=== PATIENT | male | born 1960 | race Caucasian/White ===

== ENCOUNTER 2016-12-12 14:12 | Inpatient (IN) | payer BC ==
[~2016-12-12] VITALS: Ht 195.6 cm; Wt 101.4 kg
--- NOTE | ~2016-12-12 | OP ---
PATIENT NAME: SAMIA HERNANDEZ MEDICAL RECORD: [id number] :64 LOCATION:D.[id number] ADMISSION DATE:12/12/16 SURGEON: SANDIE SALAZAR MD DATE OF OPERATION: 12/14/2016 PREOPERATIVE DIAGNOSIS: Left third toe osteomyelitis, abscess neuropathy. POSTOPERATIVE DIAGNOSES: Left third toe osteomyelitis, abscess neuropathy. PROCEDURES: Left third toe ray amputation. SURGEON: Prasad Salazar MD ANESTHESIA: TIVA with a popliteal block. CONDITION: He tolerated the procedure well, was transferred to the recovery room in stable condition at termination of procedure. 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 He is not diabetic. He developed a lesion on his left third toe at some juncture. This has been draining, it is foul smelling, clearly has osteomyelitis associated with it and clearly was nonsalvageable toe. We discussed options with him. He elected to proceed with the ray amputation. We did discuss that this is certainly a risk he has from all of his toes and for the adjacent toes specifically. He understands that this could end up going further amputations. OPERATIVE REPORT: The patient was taken to the operating room, placed in supine position. TIVA anesthesia was obtained. He did have a popliteal block placed. In the operating room, his left foot was prepped and draped in normal fashion. He has been receiving cefepime and vancomycin on the floor. He has also got a gram of Ancef in that room. After this was accomplished, he was prepped and draped and third toe was confirmed to be corrected. I did a ray amputation, doing a straight incision off of the ray and then circularly around the toe. I then cut off the metatarsal proximally. I copiously irrigated this area. It did not appear to be any infectious processes at the adjacent tissues and distal toe was clearly was the most involved. This was removed. He was copiously irrigated, following which he was closed with #1 Vicryl followed by 2-0 Vicryl, then 3-0 Prolene, closing the gap. He was placed in a soft dressing and then postop, he was awakened and transferred to the recovery room in stable condition, having tolerated the procedure well. TRANSINT:[id number] Voice Confirmation ID: [id number] DOCUMENT ID: [id number] SANDIE SALAZAR MD CC: [id number] DICTATION DATE: 12/14/16 1040 INSPECTOR SHEET METAL PARTS: 12/14/16 1151 ADM IN [place] [id number] [place] [id number]
--- NOTE | ~2016-12-12 | DS ---
PATIENT:SAMIA HERNANDEZ :64 MEDICAL RECORD: [id number] DISCHARGE SUMMARY ADMISSION DATE: 12/12/16 DISCHARGE DATE: 12/15/16 DATE OF ADMISSION: 12/13/2016 DATE OF DISCHARGE: 12/15/2016 ADMITTING DIAGNOSIS: Left foot third toe osteomyelitis and abscess. DISCHARGE DIAGNOSIS: Left foot third toe osteomyelitis and abscess. PROCEDURE PERFORMED DURING THE HOSPITALIZATION: A left third toe ray amputation. ADMITTING PHYSICIAN: Prasad Charlton MD HISTORY OF PRESENT ILLNESS: This is a 56-year-old gentleman unfortunately with profound neuropathy of his feet. He does not have diabetes. Presented with a sore in his foot that is clearly advanced osteomyelitis and significant amount of infection. He was taken to the operating room yesterday where he underwent a ray amputation of the third toe. He is doing well today revealing would like to be discharged to home. I am going to discharge home and put him on Augmentin and Bactrim for about 10 days, wanting to be cautious with his wound. I discussed with him using his postop shoe with limited weightbearing. I want to see him in the office in 7-10 days. He is going to call if he is having any problems. DISCHARGE DIAGNOSIS: Left toe abscess with osteomyelitis. PLAN: To see me back in the office in 7-10 days. TRANSINT:[id number] Voice Confirmation ID: [id number] DOCUMENT ID: [id number] SANDIE CHARLTON MD CC: [id number] DICTATION DATE: 12/15/16 0804 INSPECTOR ALUMINUM BOAT: 12/16/16 0119 DIS IN 12/15/16 [place] [id number] [place] [id number]
[2016-12-12 16:44] LABS: BASOPHILS 0.2 % (0-2); EOSINOPHILS 0.2 % (0-7); HEMATOCRIT 43.8 % (42.0-54.0); HEMOGLOBIN 15.7 g/dL (13.5-17.5); IMMATURE GRANULOCYTES 0.2 % (0-5); MCHC 35.8 g/dL (31.0-37.0); MCV 89.2 fL (80.0-100.0); MEAN PLATELET VOLUME 10.1 fL (7.4-10.4); MONOCYTES 9.5 % (2-11); NEUTROPHILS 69.9 % (40-80); PLATELET COUNT 379 10x3/uL (130-400); RBC 4.91 10x6/uL (4.20-6.10); WBC 12.1 10x3/uL (4.8-10.8)
[2016-12-12 17:08] LABS: ALBUMIN 3.2 g/dL (3.4-5.0); ALKALINE PHOSPHATASE 71 U/L (46-116); ALT (SGPT) 72 U/L (10-68); BILIRUBIN - TOTAL 0.98 mg/dL (0.2-1.3); CALC OSMOLALITY 262 mosm/kg (275-300); CALCIUM 9.1 mg/dL (8.5-10.1); CARBON DIOXIDE 26.4 mmol/L (21.0-32.0); CHLORIDE - SERUM 94 mmol/L (98-107); CREATININE - SERUM 0.9 mg/dL (0.6-1.3); GLUCOSE 113 mg/dL (74-106); POTASSIUM - SERUM 3.1 mmol/L (3.5-5.1); PROTEIN - SERUM 8.6 g/dL (6.4-8.2); SODIUM 132 mmol/L (136-145); UREA NITROGEN 5 mg/dL (7-18); eGFR NON AFRICAN AMERICAN > 90 mL/min (90-120)
[2016-12-13] VITALS: BP 135/82
--- NOTE | 2016-12-13 | NUR ---
PT ARRIVED TO ROOM VIA WHEELCHAIR, BROUGHT BY HOSPITAL STAFF ACCOMPANIED BY SPOUSE. PT ALERT AND ORIENTED X4. UP AD EVER[place]T. IV TO RIGHT AC NOT PATENT AT THIS TIME. IV RESITED TO LEFT ANTERIOR FOREARM WITH 22G CATHETER X1 ATTEMPT, FLUSHES WITHOUT PROBLEM, NOTED TO BE PATENT. PT DENIES PAIN OR NEEDS AT THIS TIME. RN TO COMPLETE ADMISSION ASSESSMENT.
[2016-12-13] MEDS ORDERED: NEURONTIN 300300 MG PO (00:09)
[2016-12-13] MEDS ORDERED: TENORMIN50 MG PO (00:10)
[2016-12-13] MEDS ORDERED: OMEPRAZOLE20 M1 PO (00:10)
[2016-12-13] MEDS ORDERED: SYNTHROID150 MCG PO (00:11)
--- NOTE | 2016-12-13 00:20 | NUR ---
PT C/O PAIN TO IV SITE OF LEFT FOREARM. SLIGHT EDEMA NOTED TO SITE, NO REDNESS, SITE COOL TO TOUCH. IV ABT STOPPED, IV REMOVED, CATHETER INTACT. IV RECIDED TO LEFT POSTERIOR FOREARM WITH 22G CATHETER X1 ATTEMPT. IV FLUSHES WITHOUT PROBLEM, NOTED TO BE PATENT.
--- NOTE | 2016-12-13 03:52 | NUR ---
LYING IN BED WITH EYES CLOSED. RESP EVEN AND UNLABORED. CALL LIGHT IN REACH.
[2016-12-13 04:00] VITALS: BP 131/89
[2016-12-13 08:05] VITALS: BP 135/82; Ht 195.6 cm; Wt 101.4 kg
[2016-12-13 09:00] VITALS: BP 143/90
--- NOTE | 2016-12-13 14:00 | NUR ---
RESTING QUIETLY IN BED. DENIES NEEDS. DRESSING TO LEFT TOE DRY AND INTACT. NO C/O AT THIS TIME.
[2016-12-13 16:17] VITALS: BP 122/80
--- NOTE | 2016-12-13 17:38 | NUR ---
SPOKE WITH PT AT LENGTH REGARDING SURGERIES AND DISEASE PROCESS IN AN ATTEMPT TO HELP PT MAKE A DECISION REGARDING SURGERY TOMORROW. PT STATES HE IS STILL THINKING ABOUT IT. TOLD HIM TO TAKE HIS TIME BECAUSE IT IS A BIG DECISION, BUT WE NEEDED TO KNOW SOON. PT STATES HE UNDERSTANDS AND WILL TALK WITH HIS .
[2016-12-13 20:00] VITALS: BP 147/95
--- NOTE | 2016-12-13 22:32 | NUR ---
Patient resting in bed with at bedside, alert and oriented , call light and water in reach, bed in lowest position and locked, CPOC.
[2016-12-14] VITALS: BP 145/102
[2016-12-14 04:00] VITALS: BP 149/86
--- NOTE | 2016-12-14 09:15 | NUR ---
PRE OPERATIVE MEDICATIONS ADMINISTERED AT THIS TIME. AT BEDSIDE AND PT DENIES NEEDS. RASHAWN, EVENING OR NIGHT NURSE SUPERVISOR AT BEDSIDE PERFORMING PRE PROCEDURE ASSESSMENT. CALL LIGHT IN REACH, WILL CONTINUE WITH PLAN OF CARE.
[2016-12-14 09:17] VITALS: BP 135/82
--- NOTE | 2016-12-14 09:32 | NUR ---
PT TAKEN FOR SURGERY. PREOP'D BY LIA FUENTES, WHICH IS VERY MUCH APPRECIATED.
--- NOTE | 2016-12-14 10:51 | NUR ---
PT REC'D BACK TO ROOM FROM SURGERY. AAOX4. ABLE TO WIGGLE TOES ON LEFT FOOT. BRISK CAP REFILL. NO COMPLAINTS OF PAIN. VSS. DRESSING TO L TOE CLEAN DRY AND INTACT. BED LOW, CALL LIGHT IN REACH, DENIES NEEDS. CPOC.
[2016-12-14 15:33] VITALS: BP 128/74
[2016-12-14 20:00] VITALS: BP 112/85
--- NOTE | 2016-12-14 20:23 | NUR ---
PATIENT RESTING IN BED. ALERT AND ORIENTED. NO SIGNS OF DISTRESS NOTED. SCHEDULED MEDS GIVEN. SHIFT ASSESSMENT COMPLETED. DENIES ANY NEEDS AT THIS TIME. BED LOW. CALL LIGHT IN REACH
--- NOTE | 2016-12-15 01:05 | NUR ---
RESTING WITH EYES CLOSED, NO DISTRESS NOTED, BOOT IN PLACE TO L FOOT, FALL PRECAUTIONS IN PLACE, CL IN REACH
[2016-12-15 04:00] VITALS: BP 131/88
--- NOTE | 2016-12-15 07:44 | NUR ---
PT AOX4 RESP EVEN AND NONLABORED IV TO LEFT FOREARM PATENT AND INTACT WALKING BOOT TO LEFT FOOT ON AT THIS TIME. PT DENIES NEEDS AT THIS TIME SRX2 CALL LIGHT WITHIN REACH WILL CONTINUE TO MONITOR BED AT LOWEST SETTING
[2016-12-15] MEDS ORDERED: AUGMENTIN 500-11 TA1 PO (08:00)
[2016-12-15] MEDS ORDERED: BACTRIM DS TABL1 TAB PO (08:00)
[2016-12-15 08:22] VITALS: BP 134/64
--- NOTE | 2016-12-15 10:15 | NUR ---
Patient Name: SAMIA HERNANDEZ Admission Status: ER Accout number: [id number] Admission Date: 12-12-2016 : 1960 Admission Diagnosis:OSTEOMYELITIS, UNSPECIFIED Attending: MARTA Current LOS: 3 Anticipated DC Date: Planned Disposition: Primary Insurance: [employer] [facility] [place] Discharge Planning Comments: CM MET WITH PATIENT REGARDING D/C NEEDS AND PLANS. PATIENT STATED HE LIVES WITH HIS (HUSAM) AND SHE WILL DRIVE HIM HOME TODAY AT DISCHARGE. PATIENT STATED HE HAS NO STEPS OR STAIRS AT HIS HOME. PATIENT STATED HIS PCP IS DR. ARIAS IN [place] AND USES [facility] IN [place]. PATIENT STATED HIS IS INDEPENDENT WITH HIS CARE AND HAS CRUTCHES AT HOME. PATIENT HAS A POST OP SHOE ON AND HE STATED THE DOCTOR TOLD HIM NOT TO USE CRUTCHES OR A WALKER. PATIENT REFUSED HOME HEALTH. CM WILL CONTINUE TO FOLLOW PATIENT WITH D/C NEEDS AND PLANS. PCP DR. ARIAS [facility] IN [place] [phone] HUSAM () [phone] Sheet Metal Contractor: Maryann Crystal
[2016-12-15 11:50] VITALS: BP 128/82
--- NOTE | 2016-12-15 12:25 | NUR ---
IV REMOVED WITH CATHETER INTACT AT THIS TIME
--- NOTE | 2016-12-15 13:00 | NUR ---
PT GIVEN DISCHARGE INSTRUCTIONS AND 2 RX'S FOR ANTIBIOTICS AT THIS TIME. PT LEAVING BUILDING VIA WHEELCHAIR VIA PRIVATE VEHICLE AT THIS TIME
== END 2016-12-15 13:01 | disposition home or self-care (01) | DRG 475 ==
LOC: D.ER 14:12 → D.MS 22:22
PROVIDERS: Emergency Medicine; ADMIT Orthopaedic Surgery Sports Medicine
PROC: 0Y6N0ZC Detachment at Left Foot, Partial 3rd Ray, Open Approach (ICD-10-PCS; principal; 2016-12-14 09:15)
DX: M86.9 Osteomyelitis, unspecified (principal); L02.612 Cutaneous abscess of left foot; G62.9 Polyneuropathy, unspecified

== ENCOUNTER 2018-02-02 15:16 | Inpatient (IN) | payer BC ==
[~2018-02-02] VITALS: Ht 195.6 cm; Wt 109.1 kg
[~2018-02-02 15:16] MED LIST: AUGMENTIN 500-11 TA1 PO; BACTRIM DS TABL1 TAB PO; NEURONTIN 300300 MG PO; OMEPRAZOLE20 M1 PO; SYNTHROID150 MCG PO; TENORMIN50 MG PO
[2018-02-02 15:47] LABS: BASOPHILS 0.7 % (0-2); HEMATOCRIT 41.3 % (42.0-54.0); HEMOGLOBIN 14.6 g/dL (13.5-17.5); IMMATURE GRANULOCYTES 0.7 % (0-5); LYMPHOCYTES 29.3 % (15-50); MCH 32.9 pg (26.0-34.0); MCHC 35.4 g/dL (31.0-37.0); MEAN PLATELET VOLUME 9.7 fL (7.4-10.4); MONOCYTES 8.2 % (2-11); NEUTROPHILS 60.1 % (40-80); PLATELET COUNT 200 10x3/uL (130-400); RBC 4.44 10x6/uL (4.20-6.10); RDW 12.7 % (11.5-14.5); WBC 5.8 10x3/uL (4.8-10.8)
[2018-02-02 20:24] LABS: ERYTHROCYTE SEDIMENTATION RATE 19 mm/hr (0-20)
[2018-02-02 22:34] VITALS: BP 136/79; BMI 28.5
[2018-02-03 01:05] VITALS: BP 136/79
[2018-02-03 05:16] VITALS: BP 125/76
[2018-02-03 08:13] VITALS: BP 154/88
[2018-02-03 12:35] VITALS: BP 161/95
[2018-02-03 13:06] VITALS: Ht 195.6 cm; Wt 109.1 kg
[2018-02-03 16:48] VITALS: BP 146/108
[2018-02-03] MEDS ORDERED: DOXYCYCLINE HY100 M2 PO (17:52)
== END 2018-02-03 18:30 | disposition home or self-care (01) | DRG 540 ==
LOC: D.ER 15:16 → D.MS 19:42
PROVIDERS: Emergency Medicine; Orthopaedic Surgery Foot and Ankle Surgery
DX: M86.172 Other acute osteomyelitis, left ankle and foot (principal); L03.116 Cellulitis of left lower limb; L97.529 Non-pressure chronic ulcer of other part of left foot with unspecified severity; M20.42 Other hammer toe(s) (acquired), left foot; G60.9 Hereditary and idiopathic neuropathy, unspecified; F17.200 Nicotine dependence, unspecified, uncomplicated

== ENCOUNTER 2018-02-05 07:05 | Day surgery (SDC) | payer BC ==
[~2018-02-05] VITALS: Ht 195.6 cm; Wt 104.3 kg
--- NOTE | ~2018-02-05 | OP ---
PATIENT NAME: SAMIA HERNANDEZ MEDICAL RECORD: [id number] :64 LOCATION:D[facility] ADMISSION DATE: SURGEON: LORNA SEN MD DATE OF OPERATION: 02/05/2018 DATE OF PROCEDURE: 02/05/2018 ANESTHESIOLOGIST: Dr. Judd. SURGEON: Dr. Sen OUTPATIENT DIETITIAN: None. PREOPERATIVE DIAGNOSES: Left second toe ulcer, left second distal phalanx, acute osteomyelitis. POSTOPERATIVE DIAGNOSES: Left second toe ulcer, left second distal phalanx, acute osteomyelitis. PROCEDURE PERFORMED: Partial amputation, left second toe through the DIP joint, bone culture of distal phalanx and soft tissue, intraoperative cultures, AFB Gram stain, fungal aerobic and anaerobic. BLOOD LOSS: Minimal. FINDINGS: See body of report. COMPLICATIONS: None. PATHOLOGY: The left second toe including the distal phalanx were sent for biopsy. Cultures were also taken from the infected wound with care to avoid culturing the superficial ulcer itself, which will be contaminated with multiple emil. IMPLANTS: None. DRAINS: None. POSTOPERATIVE CONDITION: Stable to recovery room. COUNTS: Needle, sponge, and instrument counts were correct. INDICATIONS FOR THE PROCEDURE: The patient was seen for a left second toe infection with development of an ulceration of the tip of the hammertoe over 3 to 4 days. MRI revealed edema in the distal phalanx as well as proximal phalanx. A diagnosis of acute osteomyelitis with toe ulcer was made as well as cellulitis of the second toe. Recommendation was made to the patient, after discussing with ID, that bone biopsy would be beneficial to identify the microbe since blood cultures were negative and culturing the wound tip would just reveal multiple skin contaminating emil. The patient was consented to have a left DIP disarticulation of the second toe to be sent for bone biopsy as well as cultures. Risks, benefits, alternatives and complications of the surgery were discussed with the patient. His questions were answered. The complications and benefits of alternatives were also discussed. He consented to proceed with the surgery in order to obtain the biopsy and cultures. Informed consent was OPERATIVE REPORT [id number] SAMIA HERNANDEZ obtained and placed in the chart. PROCEDURE IN DETAIL: The patient was provided a block by anesthesia in the preoperative area, after which time he was brought back to the operating room and placed supine on the operative table. Procedure was done under this block with the patient fully awake. The left lower extremity was elevated, prepped and draped in the usual sterile fashion. A 15 blade was then taken, after application of a calf tourniquet, which was brought up and remained up for the entirety of the procedure until the dressing was applied. An incision was made with a 15 blade, excising the tip ulcer and creating a flap centered around the DIP joint, which was disarticulated. The disarticulated distal phalanx and tip of the toe including the ulcer were then sent for biopsy. Cultures were then taken of the internal aspect of that distal phalanx and soft tissue with care to avoid touching the culture tip to the external aspect where the ulcer was. This was sent for AFB, fungal, aerobic and anaerobic to the lab. The articular portion of the middle phalanx was removed with a bone biter to debulk the tip for flap closure. Following this, having created a larger volar flap, the volar flap was elevated up and Proline sutures were placed along the distal and dorsal aspect of the toe completing the closure of the amputation stump. he dog ears were removed for closure. Following this, a sterile dressing was applied with Adaptic, 4 x 4 and Webril which was wrapped followed by Robert wrap. The patient was then placed in a postoperative hard-soled shoe and was instructed to weightbear on the heel only. The tourniquet was brought down and the patient was brought to the recovery room. He will be seen next week by the orthopedic clinic as well as with Dr. Rogers to followup the cultures and the bone biopsy. He will continue on his doxycycline p.o. in the meantime and I provided him with pain prescription in case he experiences deep surgical pain, although superficial pain will not be present due to his neuropathy. TRANSINT:[id number] Voice Confirmation ID: [id number] DOCUMENT ID: [id number] LORNA SEN MD at 2004 CC: [id number] DICTATION DATE: 02/05/18 1518 VP PURCHASING: 02/05/18 1613 [facility] [place] 02/05/18 [facility] [address] [place] [id number]
[~2018-02-05 07:05] MED LIST changes: +DOXYCYCLINE HY100 M2 PO
[2018-02-05 08:22] VITALS: BP 143/89; Ht 195.6 cm; Wt 104.3 kg
[2018-02-13 18:08] LABS: AEROBE ID Final report (())
[2018-02-15 16:13] LABS: AEROBE ID Final report (())
== END 2018-02-05 16:00 | disposition home or self-care (01) ==
LOC: D.OPS 07:05 → D.PAN 09:15 → D.OPS 16:00
PROVIDERS: Orthopaedic Surgery Foot and Ankle Surgery
DX: L97.528 Non-pressure chronic ulcer of other part of left foot with other specified severity (principal); M86.172 Other acute osteomyelitis, left ankle and foot; Z01.812 Encounter for preprocedural laboratory examination

== ENCOUNTER → 2018-02-16 13:37 | Outpatient (CLI) | payer BC ==
[2018-02-05 08:22] VITALS: BMI 27.3
[2018-02-16 14:05] LABS: BASOPHILS 0.8 % (0-2); EOSINOPHILS 1.4 % (0-7); HEMATOCRIT 43.9 % (42.0-54.0); HEMOGLOBIN 15.3 g/dL (13.5-17.5); IMMATURE GRANULOCYTES 0.4 % (0-5); MCH 32.6 pg (26.0-34.0); MCHC 34.9 g/dL (31.0-37.0); MCV 93.6 fL (80.0-100.0); MEAN PLATELET VOLUME 10.6 fL (7.4-10.4); NEUTROPHILS 61.4 % (40-80); PLATELET COUNT 239 10x3/uL (130-400); RBC 4.69 10x6/uL (4.20-6.10); RDW 12.9 % (11.5-14.5); WBC 5.2 10x3/uL (4.8-10.8)
[2018-02-16 14:24] LABS: C-REACTIVE PROTEIN 0.4 mg/dL (0.0-0.9); CREATININE - SERUM 0.9 mg/dL (0.6-1.3)
[2018-02-16 15:16] LABS: ERYTHROCYTE SEDIMENTATION RATE 10 mm/hr (0-20)
== END | disposition home or self-care (01) ==
LOC: D.LABREF 13:37
PROVIDERS: Student in an Organized Health Care Education/Training Program
DX: M86.9 Osteomyelitis, unspecified (principal)

== ENCOUNTER 2018-09-29 12:37 | Inpatient (IN) | payer BC ==
[~2018-09-29] VITALS: Ht 195.6 cm; Wt 93.2 kg
[2018-09-29 14:24] LABS: BASOPHILS 0.2 % (0-2); EOSINOPHILS 0 % (0-7); HEMOGLOBIN 15.8 g/dL (13.5-17.5); IMMATURE GRANULOCYTES 0.3 % (0-5); MCH 32.9 pg (26.0-34.0); MCHC 35.9 g/dL (31.0-37.0); MCV 91.7 fL (80.0-100.0); MEAN PLATELET VOLUME 10.6 fL (7.4-10.4); MONOCYTES 10.4 % (2-11); NEUTROPHILS 84.1 % (40-80); PLATELET COUNT 175 10x3/uL (130-400); RDW 12.4 % (11.5-14.5); WBC 11.6 10x3/uL (4.8-10.8)
[2018-09-29 14:39] LABS: ALBUMIN 3.1 g/dL (3.4-5.0); ANION GAP 16.8 mmol/L (8-16); BILIRUBIN - TOTAL 2.35 mg/dL (0.2-1.3); CALCIUM 8.9 mg/dL (8.5-10.1); CARBON DIOXIDE 24.6 mmol/L (21.0-32.0); CREATININE - SERUM 1.2 mg/dL (0.6-1.3); POTASSIUM - SERUM 3.4 mmol/L (3.5-5.1); PROTEIN - SERUM 8.2 g/dL (6.4-8.2)
[2018-09-29 15:00] VITALS: BP 141/90
--- NOTE | 2018-09-29 15:00 | NUR ---
PT STABLE, DENIES NEEDING PAIN MEDICATION AT THIS TIME. WILL CONTINUE TO MONITOR
--- NOTE | 2018-09-29 16:36 | NUR ---
ATTEMPTED TO CALL REPORT. NURSE WILL CALL BACK.
[2018-09-29 16:37] VITALS: BP 142/84
--- NOTE | 2018-09-29 17:05 | NUR ---
ATTEMPTED TO CALL REPORT, NURSE NOT AVAILABLE. HOUSE SUP CONTACTED
--- NOTE | 2018-09-29 17:12 | NUR ---
BIRDIE INFORMED TO GIVE BEDSIDE REPORT AT THIS TIME.
--- NOTE | 2018-09-29 17:30 | NUR ---
VANCOMYCIN COMPLETE AT THIS ITME
--- NOTE | 2018-09-29 17:31 | NUR ---
BEDSIDE REPORT HANDED OFF TO DOMINIQUE, ROOM 1203 AT THIS TIME
--- NOTE | 2018-09-29 17:40 | NUR ---
RECEIVED PT TO ROOM 1203 VIA WHEELCHAIR, ACCOMPANIED BY SPOUSE. PT A/O X4, RESP EVEN AND NONLABORED ON RA. RT AC IV INFUSING LR BOLUS AT THIS TIME. ORIENTED PT TO ROOM AND CALL LIGHT. WILL ASSES PT AND START PLAN OF CARE.
[2018-09-29 17:57] VITALS: BP 161/83; BMI 27.9
--- NOTE | 2018-09-29 18:41 | NUR ---
CALLED DR. HARRIS AND LEFT A MESSAGE LETING HIM KNOW THAT PT IN ROOM 1203 AND HAS A LACTIC ACID OF 2.2.
[2018-09-29 19:04] VITALS: BP 114/62
--- NOTE | 2018-09-29 19:16 | NUR ---
PT LAYING IN BED ON RIGHT SIDE. PT FACE IS FLUSHED, HAS 2 BLANKETS ON AND HEAT ON. TOOK ONE BLANKET OFF. TECH COMING AROUND FOR VITALS. PT HAS A RIGHT AC 20G S/L NAME AND DATE PLACED ONBOARD. AT BEDSIDE. PT DENIES ANY NEEDS. NO S/S OF DISTRESS. WILL CPOC
[2018-09-29 20:00] VITALS: BP 122/92
--- NOTE | 2018-09-29 20:04 | NUR ---
CALLED DR HARRIS REGARDING LATIC ACID BEING 2.2, NO CHANGE. TEMP INCREASED 100.8, GOT VOICEMAIL WILL CALL DR HARRIS AGAIN IN 10-30 MINS
--- NOTE | 2018-09-29 20:52 | NUR ---
ZOSYN GIVEN ORDERED. ELEVATED LEFT FOOT AND PLACED AN ICE PACK SPOKE ABOUT POC. PT VERBALIZED UNDERSTANDING. WILL CPOC
--- NOTE | 2018-09-29 21:04 | NUR ---
PT REFUSES TELEMETRY. WILL RETURN TO POLISHING WHEEL REPAIRER. PT ASKING FOR MED TO ASSIST WITH SLEEP. WILL SPEAK TO DR ABOUT IT.
--- NOTE | 2018-09-29 21:28 | NUR ---
SPOKE TO DR HARRIS REGARDING PT SLEEP CONCERN, 10MG OF AMBIEN ORDERED. ALSO STARTED PT HOME MEDS.
--- NOTE | 2018-09-29 22:52 | NUR ---
PT HAS A TEMP OF 103.3 TYLENOL GIVEN. TURNED HEAT OFF IN ROOM. PT HAS NO S/S OF DISTRESS. WILL CPOC
[2018-09-29 23:56] VITALS: BP 164/86
--- NOTE | 2018-09-30 00:20 | NUR ---
PT TEMP IS 102.6 PT ASLEEP, AROUSES TO VERBAL STIMULI. PT HAS NO S/S OF DISTRESS. BEDLOW AND CALL LIGHT IN REACH. WILL CPOC
--- NOTE | 2018-09-30 02:20 | NUR ---
PT TEMP IS 101.3 PT ASLEEP. AROUSES TO VERBAL STIMULI. AT BEDSIDE. PT WILL CALL FOR ASSIST WHEN NEEDED.
[2018-09-30 04:00] VITALS: BP 139/85
--- NOTE | 2018-09-30 04:18 | NUR ---
PT TEMP IS 99.1
[2018-09-30 07:21] LABS: BASOPHILS 0.1 % (0-2); EOSINOPHILS 0 % (0-7); HEMATOCRIT 40.2 % (42.0-54.0); HEMOGLOBIN 14.3 g/dL (13.5-17.5); IMMATURE GRANULOCYTES 0.7 % (0-5); LYMPHOCYTES 6.3 % (15-50); MCH 32.9 pg (26.0-34.0); MCHC 35.6 g/dL (31.0-37.0); MCV 92.4 fL (80.0-100.0); MONOCYTES 8.9 % (2-11); PLATELET COUNT 154 10x3/uL (130-400); RBC 4.35 10x6/uL (4.20-6.10); RDW 12.6 % (11.5-14.5); WBC 13.8 10x3/uL (4.8-10.8)
[2018-09-30 07:39] LABS: ALBUMIN 2.6 g/dL (3.4-5.0); BILIRUBIN - TOTAL 2.28 mg/dL (0.2-1.3); CALCIUM 8.4 mg/dL (8.5-10.1); CARBON DIOXIDE 26.4 mmol/L (21.0-32.0); CREATININE - SERUM 1.2 mg/dL (0.6-1.3); POTASSIUM - SERUM 3.4 mmol/L (3.5-5.1); PROTEIN - SERUM 7.1 g/dL (6.4-8.2)
[2018-09-30 09:03] LABS: INR 1.17 (0.85-1.17); PROTIME 14.4 SECONDS (11.6-15.0)
[2018-09-30 09:04] LABS: APTT 37.2 SECONDS (22.8-39.4)
[2018-09-30 09:29] LABS: CREATINE KINASE 464 UL (21-232); MAGNESIUM - SERUM 1.7 mg/dL (1.8-2.4)
[2018-09-30 09:32] LABS: CKMB 0.8 U/L (0.0-3.6)
[2018-09-30 09:53] VITALS: BMI 27.8
--- NOTE | 2018-09-30 11:18 | NUR ---
DR. SAENZ BY TO SEE PATIENT.
[2018-09-30 13:45] VITALS: Ht 195.6 cm; Wt 93.2 kg
[2018-09-30 14:16] LABS: ERYTHROCYTE SEDIMENTATION RATE 55 mm/hr (0-20)
--- NOTE | 2018-09-30 19:30 | NUR ---
PT IS AAO, UP AD EVERETT. LEFT LOWER LEG SWOLLEN AND TENDER. ELEVATED. RIGHT FOOT HAS A BLISTER ON HEEL THAT PT STATES IS FROM HITTING IT ON AN ITEM AT HOME. OPEN BLISTER APPROX 1/2 INCH IN DIAMETER. CLEANED AND PLACED A DRSG. PT VERBALIZED UNDERSTANDING OF NEED TO CARE FOR OPEN WOUND ON HEEL. AT BEDSIDE VERBLIZED AGREEMENT. PT HAS NO S/S OF DISTRESS. BEDLOW AND CALL LIGHT INREACH. WILL CPOC
[2018-09-30 20:00] VITALS: BP 156/68
[2018-09-30 20:10] VITALS: BP 131/81
--- NOTE | 2018-09-30 20:19 | NUR ---
PT RESTING IN BED. REQUESTING AMBIEN. PT HAS NO S/S OF DISTRESS. BEDLOW AND CALL LIGHT IN REACH. WILL CPOC
--- NOTE | 2018-09-30 20:27 | NUR ---
TEMP IS 101.8, TYLEONL GIVEN
[2018-10-01 00:30] VITALS: BP 130/80
--- NOTE | 2018-10-01 02:03 | NUR ---
PT COMPLAINS OF PAIN AND IS HAVING TROUBLE SLEEPING. CONCERNED OF TAKING MORPHINE. EDUCATED IN MORPHINE BUT PT STILL WANTS ONLY 2MG AT THIS TIME. NURSE AGREED.
[2018-10-01 05:04] VITALS: BP 124/71
--- NOTE | 2018-10-01 05:42 | NUR ---
PT COMPLAINS THAT HE DID NOT GET SLEEP, SENT HOME. PT FACE FLUSHED TEMP IS 99.8, NO S/S OF DISTRESS. BEDLOW AND CALL LIGHT IN REACH. GOING TO TRY AND REST MORE. REEDUCATED ON PROTONIX. PT VERBALIZED UNDERSTANDING. WILL CPOC
--- NOTE | 2018-10-01 07:26 | NUR ---
ROUNDING DONE WITH PATIENT LAYING ON BED WHILE RECEIVING VITAL SIGNS. NS INFUSING TO RIGHT AC AT 75 CC/HR. STATES HE IS HUNGRY. WILL MONITOR.
[2018-10-01 08:28] VITALS: BP 126/85
--- NOTE | 2018-10-01 09:00 | NUR ---
The patient is resting, he has made no complaints. He denies any needs at this time.
--- NOTE | 2018-10-01 09:39 | MORECARE ---
CASE MANAGEMENT DISCHARGE SUMMARY PATIENT: SAMIA HERNANDEZ UNIT: [id number] ADM DATE: 09/29/18 AGE: 58 : 64 SEX: M ROOM/BED: D.1203 AUTHOR: FINN CORREA PHYSICIAN: REFERRING PHYSICIAN: SOPHIA HARRIS MD DATE OF SERVICE: 10/01/18 Discharge Plan Patient Name: SAMIA HERNANDEZ [facility] [facility] 1960 Planned Disposition: Anticipated Discharge Date: Discharge Date: Expected LOS: Initial Reviewer: [email or web address] Initial Review Date: 10/01/2018 Generated: 10/01/18 10:39 am Patient Name: SAMIA HERNANDEZ Page [phone] at 0939 All edits/amendments must be made on the electronic document DICTATION DATE: 10/01/18937 SPD MANAGER: JUDITH 10/01/18937 RPT#: [id number] DC DATE: STATUS: ADM IN [facility] [address] [place] [address] END OF REPORT
--- NOTE | 2018-10-01 09:47 | MORECARE ---
CASE MANAGEMENT DISCHARGE SUMMARY PATIENT: SAMIA HERNANDEZ UNIT: [id number] ADM DATE: 09/29/18 AGE: 58 : 64 SEX: M ROOM/BED: D.1203 AUTHOR: FINN CORREA PHYSICIAN: REFERRING PHYSICIAN: SOPHIA HARRIS MD DATE OF SERVICE: 10/01/18 Discharge Plan Patient Name: SAMIA HERNANDEZ Facility: [facility]:[place] : 1960 Planned Disposition: Anticipated Discharge Date: Discharge Date: Expected LOS: Initial Reviewer: [email or web address] Initial Review Date: 10/01/2018 Generated: 10/01/18 10:47 am Comments DCP- Discharge Planning Updated by [email or web address]: Constanza Gauthier on 10/01/18 8:[address] Patient Name: SAMIA HERNANDEZ Admission Status: ER Accout number: [id number] Admission Date: 09-29-2018 : 1960 Admission Diagnosis: Attending: SOPHIA HARRIS Current LOS: 2 Anticipated DC Date: Planned Disposition: Primary Insurance: [employer] Discharge Planning Comments: CM MET WITH PATIENT AND FAMILY ABOUT DC PLANNING/NEEDS. STATES IF THE DOCTOR IS TO SEND HIM HOME ON IV ANTIBIOTICS HE WILL NEED AN IFUSION COMPANY AND HH AGENCY. FLORINA SIGNED, PATIENT STATES ANY HH AND INFUSION SERVICE WILL BE FINE. CM WILL FOLLOW AND ASSIST NEEDED WITH DC PLANNING NEEDS. WILL SEND REFERRALS WHEN IT IS KNOWN IF HE NEEDS HOME IV ANTIBIOTICS. STATES IF HE DOESN'T THEN HE DOESN'T NEED HH. PCP IS JUANA. PHARMACY IS [facility]. CONTACT IS HUSAM AT [phone] Computer Assistant: Constanza Gauthier Coverage Notice Reviewer: [id number] Chuck Gauthier Notice Issued Date-Time: 10/01/2018 9:46 Notice Type: Patient Choice Letter Notice Delivered To: Patient Relationship to Patient: Self Rn Hospital Name: Delivery Method: HAND - Hand Delivered Claudine Days: Prior Verbal Notification: Recipient Understood Notice: Yes Recipient Signature: Yes Med Rec Note Co-signed by Attending: Coverage Notice Comment: INFUSION COMPANY , ANY HH COMPANY, ANY PATIENT LIVES IN [place] Last DP export: 10/01/18 8:39 a Patient Name: SAMIA HERNANDEZ Page [phone] at 0947 All edits/amendments must be made on the electronic document DICTATION DATE: 10/01/18946 PRINCIPAL EMBEDDED SOFTWARE ENGINEER: JUDITH 10/01/18946 RPT#: [id number] DC DATE: STATUS: ADM IN [facility] [address] [place] [address] END OF REPORT
--- NOTE | 2018-10-01 11:30 | NUR ---
The patient is awake and he is pleasant he denies any needs.
[2018-10-01 11:59] VITALS: BP 113/73
--- NOTE | 2018-10-01 14:00 | NUR ---
The patient is calm he is pleasant denies any needs.
[2018-10-01 16:24] VITALS: BP 120/81
--- NOTE | 2018-10-01 16:30 | NUR ---
The patient is awake and alert, his spouse went home to shower, he denies any needs, he does want to take a shower when his comes back with clean clothes for him.
--- NOTE | 2018-10-01 18:00 | NUR ---
The patient denies needs at this time.
--- NOTE | 2018-10-01 19:22 | NUR ---
PT SITTING ON SIDE OF BED. PT IS AAO, VANC INFUSING TO RIGHT AC, PT HAS FEET ON FLOOR, FEELS THAT HIS LEFT LEG AND FOOT IS LARGER. COMPARED TO LAST NIGHT TOES AND FOOT DO SEEM SLIGHTLY LARGER. CAP REFILL WITHIN NORMAL LIMITS. SPOKE WITH PT ABOUT PUTTING LEG BACK INTO BED TO ELEVATE. PT USED RESTROOM AND LAID BACK DOWN. PT HAS NO S/S OF DISTRESS. AT BEDSIDE. DENIES ANY NEEDS. WILL CPOC
[2018-10-01 20:00] VITALS: BP 134/80
[2018-10-02] VITALS (7 sets, daily range): BP systolic 118–163; BP diastolic 74–100
--- NOTE | 2018-10-02 00:49 | NUR ---
PT SLEEP. AROUSES TO NURSE ENTERING ROOM. STARTED VANC ORDERED. PT DENIES ANY NEEDS. NO S/S OF DISTRESS. WILL CPCO
--- NOTE | 2018-10-02 04:53 | NUR ---
PT SLEEP. RESP EVEN AND UNLABORED. NO S/S OF DISTRESS. AT BEDSIDE. NS KVO RIGHT AC. BEDLOW AND CALL LIGHT IN REACH. WILL CPOC
[2018-10-02 07:15] LABS: BASOPHILS 0.1 % (0-2); EOSINOPHILS 0.9 % (0-7); HEMATOCRIT 37.4 % (42.0-54.0); HEMOGLOBIN 13.1 g/dL (13.5-17.5); IMMATURE GRANULOCYTES 0.5 % (0-5); LYMPHOCYTES 11.5 % (15-50); MCH 32.6 pg (26.0-34.0); MEAN PLATELET VOLUME 10.8 fL (7.4-10.4); RBC 4.02 10x6/uL (4.20-6.10); RDW 13.1 % (11.5-14.5); WBC 10.6 10x3/uL (4.8-10.8)
[2018-10-02 07:17] LABS: CALC OSMOLALITY 274 mosm/kg (275-300); CARBON DIOXIDE 28.2 mmol/L (21.0-32.0); CHLORIDE - SERUM 100 mmol/L (98-107); GLUCOSE 104 mg/dL (74-106); SODIUM 138 mmol/L (136-145); UREA NITROGEN 10 mg/dL (7-18); eGFR NON AFRICAN AMERICAN 82 mL/min (90-120)
[2018-10-02 07:21] LABS: PLATELET COUNT 188 10x3/uL (130-400)
--- NOTE | 2018-10-02 08:30 | NUR ---
PT AAOX4 RESP EVEN AND NONLABORED, NO SIGNS OF DISTRESS NOTED, CL IN REACH WILL CONTINUE TO MONITOR
--- NOTE | 2018-10-02 11:23 | NUR ---
RESTING QUIETLY IN BED. DENIES ANY NEEDS AT THIS TIME.
--- NOTE | 2018-10-02 20:07 | NUR ---
PATIENT RESTING IN BED AND DENIES NEEDS AT THIS TIME. ADMINISTERED MEDS PER ORDERS. BED IN LOWEST POSITION AND CALL LIGHT WITHIN REACH. ENCOURAGED THE PATIENT TO CALL IF HE HAS NEEDS. WILL CONTINUE TO MONITOR.
[2018-10-03 05:30] VITALS: BP 116/78
[2018-10-03 05:56] LABS: BASOPHILS 0.2 % (0-2); EOSINOPHILS 0.8 % (0-7); HEMATOCRIT 36.6 % (42.0-54.0); HEMOGLOBIN 12.6 g/dL (13.5-17.5); IMMATURE GRANULOCYTES 0.5 % (0-5); LYMPHOCYTES 14.4 % (15-50); MCHC 34.4 g/dL (31.0-37.0); MCV 92.9 fL (80.0-100.0); MEAN PLATELET VOLUME 10.5 fL (7.4-10.4); MONOCYTES 8.2 % (2-11); NEUTROPHILS 75.9 % (40-80); RBC 3.94 10x6/uL (4.20-6.10); RDW 13.1 % (11.5-14.5); WBC 11.6 10x3/uL (4.8-10.8)
[2018-10-03 06:00] LABS: PLATELET COUNT 232 10x3/uL (130-400)
[2018-10-03 06:15] LABS: CALC OSMOLALITY 270 mosm/kg (275-300); CALCIUM 7.8 mg/dL (8.5-10.1); CHLORIDE - SERUM 101 mmol/L (98-107); CREATININE - SERUM 0.9 mg/dL (0.6-1.3); GLUCOSE 116 mg/dL (74-106); POTASSIUM - SERUM 3.3 mmol/L (3.5-5.1); SODIUM 136 mmol/L (136-145); eGFR NON AFRICAN AMERICAN > 90 mL/min (90-120)
[2018-10-03 06:18] LABS: UREA NITROGEN 7 mg/dL (7-18)
[2018-10-03 07:35] VITALS: BP 125/78
--- NOTE | 2018-10-03 08:13 | NUR ---
PT RESTING AT THIS TIME EYES CLOSED, NO SIGNS OF DISTRESS NOTED, CL IN REACH WILL CONTINUE TO MONITOR
[2018-10-03 11:21] VITALS: BP 126/75
--- NOTE | 2018-10-03 12:00 | NUR ---
DR. SCHWARTZ HERE AND DID AN ASPIRATE OF LEFT KNEE. PATIENT TOLERATED WELL.
[2018-10-03 13:58] LABS: MACROPHAGES BF 13 %; NEUT - BF 80 %
[2018-10-03 15:41] VITALS: BP 129/82
--- NOTE | 2018-10-03 17:29 | NUR ---
PT AAOX4 RESP EVEN AND NONLABORED, FAMILY AT BEDSIDE, NO NEEDS EXPRESSED AT THIS TIME WILL CONTINUE TO MONITOR CL IN REACH
[2018-10-03 20:00] VITALS: BP 117/73
--- NOTE | 2018-10-03 20:11 | NUR ---
PATIENT RESTING IN BED WITH GUEST AT BEDSIDE AND NO S/S OF DISTRESS. ADMINISTERED MEDS PER ORDERS. PATIENT DENIES OTHER NEEDS AT THIS TIME. BED IN LOWEST POSITION AND CALL LIGHT WITHIN REACH. ENCOURAGED THE PATIENT TO CALL IF HE HAS NEEDS.
[2018-10-04] VITALS: BP 117/79
[2018-10-04 04:00] VITALS: BP 117/72
[2018-10-04 07:25] LABS: BASOPHILS 0.3 % (0-2); EOSINOPHILS 0.6 % (0-7); HEMOGLOBIN 12.9 g/dL (13.5-17.5); IMMATURE GRANULOCYTES 0.7 % (0-5); LYMPHOCYTES 12.4 % (15-50); MCH 32.9 pg (26.0-34.0); MCHC 34.9 g/dL (31.0-37.0); MCV 94.4 fL (80.0-100.0); MEAN PLATELET VOLUME 10.5 fL (7.4-10.4); MONOCYTES 11.6 % (2-11); NEUTROPHILS 74.4 % (40-80); RBC 3.92 10x6/uL (4.20-6.10); RDW 13.4 % (11.5-14.5); WBC 11.4 10x3/uL (4.8-10.8)
[2018-10-04 07:32] LABS: PLATELET COUNT 281 10x3/uL (130-400)
[2018-10-04 07:50] LABS: ANION GAP 13.9 mmol/L (8-16); CALCIUM 8.2 mg/dL (8.5-10.1); CARBON DIOXIDE 25.5 mmol/L (21.0-32.0); CREATININE - SERUM 1.1 mg/dL (0.6-1.3); POTASSIUM - SERUM 3.4 mmol/L (3.5-5.1)
[2018-10-04 09:03] VITALS: BP 116/66
[2018-10-04 20:00] VITALS: BP 137/83
--- NOTE | 2018-10-04 20:14 | NUR ---
PATIENT RESTING IN BED WITH NO S/S OF DISTRESS. ADMINISTERED MEDS PER ORDERS. PATIENT DENIES OTHER NEEDS AT THIS TIME. BED IN LOWEST POSITION AND CALL LIGHT WITHIN REACH. ENCOURAGED THE PATIENT TO CALL IF HE HAS NEEDS. WILL CONTINUE TO MONITOR.
[2018-10-05] VITALS: BP 119/77
[2018-10-05 04:00] VITALS: BP 128/77
--- NOTE | 2018-10-05 07:27 | NUR ---
AM ROUNDS- PT IN BED, A/OX4, RESP EVEN AND REGULAR ON RA. LT AC INFUSING NS AT KVO. LT LEG RED AND SWOLLEN, WITH WEAK PULSES. PT DENIES ANY NEEDS AT THIS TIME. AT BEDSIDE, CALL LIGHT IN REACH,NAD NOTED, WILL CONTINUE PLAN OF CARE.
[2018-10-05 07:55] VITALS: BP 148/72
[2018-10-05 08:09] LABS: ANION GAP 14.3 mmol/L (8-16); CALCIUM 8.2 mg/dL (8.5-10.1); CARBON DIOXIDE 26.5 mmol/L (21.0-32.0); CREATININE - SERUM 1.2 mg/dL (0.6-1.3)
[2018-10-05 08:14] LABS: POTASSIUM - SERUM 2.8 mmol/L (3.5-5.1)
[2018-10-05 08:45] LABS: BASOPHILS 0.3 % (0-2); EOSINOPHILS 0.2 % (0-7); HEMATOCRIT 36.9 % (42.0-54.0); HEMOGLOBIN 12.8 g/dL (13.5-17.5); IMMATURE GRANULOCYTES 0.9 % (0-5); LYMPHOCYTES 12.2 % (15-50); MCH 32.4 pg (26.0-34.0); MCHC 34.7 g/dL (31.0-37.0); MCV 93.4 fL (80.0-100.0); MEAN PLATELET VOLUME 10.6 fL (7.4-10.4); MONOCYTES 11.6 % (2-11); NEUTROPHILS 74.8 % (40-80); RBC 3.95 10x6/uL (4.20-6.10); RDW 13.1 % (11.5-14.5)
[2018-10-05 08:55] LABS: PLATELET COUNT 356 10x3/uL (130-400); WBC 15.4 10x3/uL (4.8-10.8)
--- NOTE | 2018-10-05 09:43 | NUR ---
Pt is on a Cardiac diet with 64% average po intake past 9 meals documented Pt reports appetite is not as good as usual Pt was nauseated this morning and did not eat much if any food Last BM documented 10/03 Discussed the importance of protein to help pt maintain strength while not active. Encouraged pt to drink Ensure if not able to eat a meal RD following
[2018-10-05 12:17] VITALS: BP 125/81
--- NOTE | 2018-10-05 14:11 | NUR ---
PT SLEEPING AT THIS TIME. EASILY AROUSE TO VOICE. PT DENIES ANY NEEDS AT THIS TIME. CALL LIGHT IN REACH, NAD NOTED, WILL CONTINUE TO MONITOR.
[2018-10-05 16:02] VITALS: BP 132/77
[2018-10-05 20:00] VITALS: BP 120/60
--- NOTE | 2018-10-05 21:56 | NUR ---
PATIENT RESTING IN BED WITH NO S/S OF DISTRESS. ADMINISTERED MEDS PER ORDERS. PATIENT DENIES NEEDS AT THIS TIME. BED IN LOWEST POSITION AND CALL LIGHT WITHIN REACH. ENCOURAGED THE PATIENT TO CALL IF HE HAS NEEDS. WILL CONTINUE TO MONITOR.
[2018-10-06] VITALS: BP 115/70
[2018-10-06 04:00] VITALS: BP 119/81
[2018-10-06 07:34] VITALS: BP 127/86
[2018-10-06 07:46] LABS: ANION GAP 13.7 mmol/L (8-16); CALCIUM 8.7 mg/dL (8.5-10.1); CARBON DIOXIDE 28.3 mmol/L (21.0-32.0); CREATININE - SERUM 1.2 mg/dL (0.6-1.3)
[2018-10-06 08:03] LABS: BASOPHILS 0.3 % (0-2); EOSINOPHILS 0.8 % (0-7); HEMATOCRIT 37.9 % (42.0-54.0); IMMATURE GRANULOCYTES 0.8 % (0-5); LYMPHOCYTES 12.9 % (15-50); MCH 31.9 pg (26.0-34.0); MCHC 34.3 g/dL (31.0-37.0); MCV 93.1 fL (80.0-100.0); MEAN PLATELET VOLUME 10.5 fL (7.4-10.4); MONOCYTES 10.6 % (2-11); NEUTROPHILS 74.6 % (40-80); PLATELET COUNT 398 10x3/uL (130-400); RBC 4.07 10x6/uL (4.20-6.10); WBC 11.9 10x3/uL (4.8-10.8)
--- NOTE | 2018-10-06 08:39 | NUR ---
CALLED PHARMACY AND SPOKE WITH WU AND INFORMED HER THAT I NEED COUGH MEDICATION FOR PT.
[2018-10-06 12:23] VITALS: BP 97/64
--- NOTE | 2018-10-06 14:56 | NUR ---
PT RESTING COMFORTABLY IN BED, EASILY AROUSES TO VOICE. IVPB VANCOMYCIN HUNG AT THIS TIME. LIBRIUM GIVEN ORDRED. PT DENIEAS ANY NEEDS AT THIS TIME. CALL LIGHT IN REACH,NAD NOTED, WILL CONTINUE TO MONITOR.
[2018-10-06 16:03] VITALS: BP 97/68
--- NOTE | 2018-10-06 18:12 | NUR ---
CALLED PHARMACY AND SPOKE WITH PENG, INFORMED HIM THAT I NEED TYLENOL FOR PT.
--- NOTE | 2018-10-06 19:45 | NUR ---
PT RESTING IN BED COMFORTABLY WITH AT BEDSIDE. PT DENIES ANY PAIN OR NEEDS AT THIS TIME. RR EVEN AND UNLABORED. BED LOW CALL LIGHT WITHIN REACH. WILL CONTINUE TO MONITOR.
[2018-10-06 20:00] VITALS: BP 116/73; BP 124/78
[2018-10-07] VITALS: BP 125/84
--- NOTE | 2018-10-07 03:25 | NUR ---
LYING IN BED. COUGH NOTED. NS @ KVO INFUSING IN LT FOREARM. NO DISTRESS. CL IN REACH.
[2018-10-07 04:00] VITALS: BP 123/56
--- NOTE | 2018-10-07 04:05 | NUR ---
PT RESTING IN BED WITH EYES CLOSED. RR-EVEN AND UNLABORED. AT BEDSIDE. BED LOW CALL LIGHT WITHIN REACH. WILL CONTINUE TO MONITOR.
[2018-10-07 07:11] LABS: ANION GAP 15.9 mmol/L (8-16); CALCIUM 8.2 mg/dL (8.5-10.1); CARBON DIOXIDE 26.3 mmol/L (21.0-32.0); CREATININE - SERUM 1.2 mg/dL (0.6-1.3); MAGNESIUM - SERUM 2.3 mg/dL (1.8-2.4)
[2018-10-07 07:12] LABS: POTASSIUM - SERUM 3.2 mmol/L (3.5-5.1)
[2018-10-07 07:53] VITALS: BP 126/73
--- NOTE | 2018-10-07 07:59 | NUR ---
ROUNDING DONE WITH PATIENT HAVING FEVER OF 100.7 AX AND ON EP, K+ 3.2. COVERED WITH TYLENOL FOR FEVER AND ORAL SUPPLEMENTS OF POTASSIUM. LEFT FA PIV SEEN WITH NS INFUSING AT 10 CC/HR. BILL IS DISGRUNTED THIS AM AND "I DON'T LIKE THIS CRAPPY FOOD". IS NOT AT BEDSIDE. I ASKED IF I COULD ORDER HIM SOMETHING ELSE AND HE SAID NO. WILL COMPLETE ASSESSMENT AFTER BREAKFAST.
--- NOTE | 2018-10-07 09:20 | NUR ---
TEMP 98.3 AX
[2018-10-07 09:26] LABS: BASOPHILS 0.3 % (0-2); EOSINOPHILS 1.3 % (0-7); HEMATOCRIT 35.5 % (42.0-54.0); HEMOGLOBIN 12.1 g/dL (13.5-17.5); IMMATURE GRANULOCYTES 0.7 % (0-5); LYMPHOCYTES 9.3 % (15-50); MCH 31.9 pg (26.0-34.0); MCHC 34.1 g/dL (31.0-37.0); MCV 93.7 fL (80.0-100.0); MEAN PLATELET VOLUME 10.4 fL (7.4-10.4); NEUTROPHILS 80.4 % (40-80); PLATELET COUNT 417 10x3/uL (130-400); RBC 3.79 10x6/uL (4.20-6.10); WBC 11.9 10x3/uL (4.8-10.8)
[2018-10-07 11:32] VITALS: BP 126/83
--- NOTE | 2018-10-07 13:10 | NUR ---
RE-DRAW OF POTASSIUM WITH RESULTS OF 3.9.
[2018-10-07 16:04] VITALS: BP 117/67
--- NOTE | 2018-10-07 19:26 | NUR ---
PT ALERT AND ORIENTED X4. PT DENIES PAIN AT THIS TIME AND STATES, "I FEEL SO MUCH BETTER TODAY." PT PEDAL PULSE'S PRESENT TO PALP BUT WEAK. PT LFA IV RUNNING NS KVO. PT DENIES ANY NEEDS AT THIS TIME. AT BEDSIDE, BED LOW, CALL LIGHT WITHIN REACH. WILL CONTINUE TO MONITOR.
[2018-10-07 20:29] VITALS: BP 120/81
[2018-10-08 00:52] VITALS: BP 158/68
--- NOTE | 2018-10-08 01:02 | NUR ---
LYING IN BED WITH EYES CLOSED. RESP EVEN AND NONLABORED. NO DISTRESS. CL IN REACH.
--- NOTE | 2018-10-08 02:13 | NUR ---
PT RESTING COMFORTABLY IN BED. RR EVEN AND UNLABORED. NO S/S OF DISTRESS. AT BEDSIDE. BED LOW CALL LIGHT WITHIN REACH. WILL CONTINUE TO MONITOR.
[2018-10-08 04:00] VITALS: BP 123/78
--- NOTE | 2018-10-08 07:28 | NUR ---
REPORT RECEIVED. WILL CONTINUE WITH POC. PT CURRENTLY LYING SUPINE. CALL LIGHT W/I REACH. FAMILY AT BEDSIDE. PT IS RESTING AT THE MOMENT. RR EVEN AND UNLABORED ON RA. NS INFUSING @KVO VIA L.FOR PIV. PT DENIES ANY NEEDS AT THIS TIME. WILL CTM.
[2018-10-08 08:50] VITALS: BP 131/89
[2018-10-08 09:30] LABS: BASOPHILS 0.4 % (0-2); EOSINOPHILS 1.7 % (0-7); HEMOGLOBIN 12.2 g/dL (13.5-17.5); IMMATURE GRANULOCYTES 0.5 % (0-5); LYMPHOCYTES 12.5 % (15-50); MCH 31.9 pg (26.0-34.0); MCHC 33.9 g/dL (31.0-37.0); MEAN PLATELET VOLUME 10.3 fL (7.4-10.4); NEUTROPHILS 78.9 % (40-80); RBC 3.83 10x6/uL (4.20-6.10); RDW 13.1 % (11.5-14.5); WBC 10.9 10x3/uL (4.8-10.8)
[2018-10-08 09:31] LABS: PLATELET COUNT 510 10x3/uL (130-400)
[2018-10-08 10:03] LABS: CALC OSMOLALITY 279 mosm/kg (275-300); CALCIUM 8.7 mg/dL (8.5-10.1); CARBON DIOXIDE 29.4 mmol/L (21.0-32.0); CHLORIDE - SERUM 99 mmol/L (98-107); GLUCOSE 115 mg/dL (74-106); MAGNESIUM - SERUM 2.4 mg/dL (1.8-2.4); SODIUM 139 mmol/L (136-145); UREA NITROGEN 15 mg/dL (7-18); eGFR NON AFRICAN AMERICAN 82 mL/min (90-120)
--- NOTE | 2018-10-08 14:30 | NUR ---
PREVIOUS PIV INFILTRATED. INITIATED NEW PIV TO THE LEFT HAND 22GA X1 ATTEMPT. FLUSHED WITH 10CC NS TO CONFIRM PATENCY. PT TOLERATED. WELL. BEGAN INFUSION OF ABX. WILL CTM.
[2018-10-08 20:17] VITALS: BP 127/77
[2018-10-08 22:33] VITALS: BP 118/77
--- NOTE | 2018-10-09 08:01 | NUR ---
PT AAOX4 RESP EVEN AND NONLBAORED NO SIGNS OF DISTRESS NOTED, CL IN REACH FAMILY AT BEDSIDE WILL CONTINUE TO MONITOR
[2018-10-09 08:55] LABS: BASOPHILS 0.3 % (0-2); EOSINOPHILS 0.9 % (0-7); HEMATOCRIT 36.1 % (42.0-54.0); HEMOGLOBIN 12.3 g/dL (13.5-17.5); IMMATURE GRANULOCYTES 0.7 % (0-5); LYMPHOCYTES 13.3 % (15-50); MCH 32.4 pg (26.0-34.0); MCHC 34.1 g/dL (31.0-37.0); MEAN PLATELET VOLUME 9.8 fL (7.4-10.4); MONOCYTES 5.8 % (2-11); PLATELET COUNT 514 10x3/uL (130-400); RDW 13.2 % (11.5-14.5)
[2018-10-09 09:04] LABS: ANION GAP 14.8 mmol/L (8-16); CALCIUM 8.3 mg/dL (8.5-10.1); CARBON DIOXIDE 26.5 mmol/L (21.0-32.0); POTASSIUM - SERUM 3.3 mmol/L (3.5-5.1)
[2018-10-09 09:05] LABS: CREATININE - SERUM 1.3 mg/dL (0.6-1.3)
--- NOTE | 2018-10-09 12:27 | NUR ---
RESTING QUIETLY IN BED. DENIES ANY NEEDS AT THIS TIME.
[2018-10-09 18:54] VITALS: BP 125/74
[2018-10-09 18:55] VITALS: BP 123/83
[2018-10-09 20:00] VITALS: BP 123/77
--- NOTE | 2018-10-09 21:20 | NUR ---
PATIENT RESTING IN BED WITH GUEST AT BEDSIDE AND NO S/S OF DISTRESS. BED IN LOWEST POSITION AND CALL LIGHT WITHIN REACH. ADMINISTERED MEDS PER ORDERS. PATIENT DENIES OTHER NEEDS AT THIS TIME. WILL CONTINUE TO MONITOR.
[2018-10-10] VITALS: BP 108/70
[2018-10-10 04:00] VITALS: BP 132/71
[2018-10-10 05:42] LABS: BASOPHILS 0.4 % (0-2); EOSINOPHILS 1.1 % (0-7); HEMOGLOBIN 11.9 g/dL (13.5-17.5); IMMATURE GRANULOCYTES 0.7 % (0-5); MCH 31.5 pg (26.0-34.0); MCHC 33.1 g/dL (31.0-37.0); MCV 95.2 fL (80.0-100.0); MEAN PLATELET VOLUME 9.8 fL (7.4-10.4); MONOCYTES 6.7 % (2-11); NEUTROPHILS 78.1 % (40-80); PLATELET COUNT 522 10x3/uL (130-400); RBC 3.78 10x6/uL (4.20-6.10); RDW 13.2 % (11.5-14.5); WBC 14.3 10x3/uL (4.8-10.8)
[2018-10-10 06:19] LABS: CALC OSMOLALITY 277 mosm/kg (275-300); CALCIUM 8.6 mg/dL (8.5-10.1); CARBON DIOXIDE 27.7 mmol/L (21.0-32.0); CHLORIDE - SERUM 100 mmol/L (98-107); GLUCOSE 109 mg/dL (74-106); MAGNESIUM - SERUM 2.2 mg/dL (1.8-2.4); POTASSIUM - SERUM 3.4 mmol/L (3.5-5.1); SODIUM 138 mmol/L (136-145); UREA NITROGEN 14 mg/dL (7-18); eGFR NON AFRICAN AMERICAN 82 mL/min (90-120)
--- NOTE | 2018-10-10 07:36 | NUR ---
PT RESTING EYES CLOSED, NO SIGNS OF DISTRESS NOTED, AT BEDSIDE, CL IN REACH
[2018-10-10 09:10] VITALS: BP 122/83
--- NOTE | 2018-10-10 12:39 | NUR ---
RESTING QUIETLY IN BED. AT BEDSIDE.
--- NOTE | 2018-10-10 13:19 | NUR ---
PT RESTING EYES CLOSED NO SIGNS OF DISTRESS NOTED, CL IN REACH FAMILY AT BEDSIDE
--- NOTE | 2018-10-10 13:49 | NUR ---
rehab prescreen: This patient has commercial insurance and will required prior auth before able to admit. Currently the pt is refusing therapy so unable to deturmine his needs,will monitor his progress and keep update with insurance approval. thank you for this eval. miguel wang clinical liasion
[2018-10-10 19:35] VITALS: BP 108/81
[2018-10-10 20:23] VITALS: BP 102/79
--- NOTE | 2018-10-10 21:49 | NUR ---
PATIENT RESTING IN BED WITH NO S/S OF DISTRESS. ADMINISTERED MEDS PER ORDERS. PATIENT REQUESTED TO WAIT ON AMBIEN. PATIENT DENIES OTHER NEEDS AT THIS TIME. BED IN LOWEST POSITION AND CALL LIGHT WITHIN REACH. ENCOURAGED THE PATIENT TO CALL IF HE HAS NEEDS. WILL CONTINUE TO MONITOR.
[2018-10-11] VITALS: BP 106/70
[2018-10-11 05:51] VITALS: BP 124/73
[2018-10-11 06:30] LABS: ANION GAP 13.9 mmol/L (8-16); CALCIUM 8.6 mg/dL (8.5-10.1); CARBON DIOXIDE 26.4 mmol/L (21.0-32.0); CREATININE - SERUM 1.2 mg/dL (0.6-1.3); MAGNESIUM - SERUM 2.2 mg/dL (1.8-2.4); POTASSIUM - SERUM 3.3 mmol/L (3.5-5.1); VANCOMYCIN - TROUGH 42.2 ug/mL (10.0-20.0)
[2018-10-11 06:48] LABS: BASOPHILS 0.3 % (0-2); EOSINOPHILS 1.1 % (0-7); HEMATOCRIT 35.7 % (42.0-54.0); HEMOGLOBIN 11.9 g/dL (13.5-17.5); IMMATURE GRANULOCYTES 0.6 % (0-5); LYMPHOCYTES 14.5 % (15-50); MCH 31.5 pg (26.0-34.0); MCHC 33.3 g/dL (31.0-37.0); MCV 94.4 fL (80.0-100.0); MEAN PLATELET VOLUME 10.1 fL (7.4-10.4); MONOCYTES 6.4 % (2-11); NEUTROPHILS 77.1 % (40-80); PLATELET COUNT 575 10x3/uL (130-400); RBC 3.78 10x6/uL (4.20-6.10); RDW 13.3 % (11.5-14.5); WBC 13.3 10x3/uL (4.8-10.8)
[2018-10-11 08:44] VITALS: BP 128/75
--- NOTE | 2018-10-11 09:43 | NUR ---
Rehab Note- The patient has [employer] Advant[employer] insurance and can not be admitted to [facility] Acute Inpatient Rehab. THank you for this referral! Kaya Gonzalez RN Clinical Liaison, [facility] Rehab
--- NOTE | 2018-10-11 12:17 | NUR ---
Pt is on a cardiac diet with 63% average po intake Weight 226.3lb Pt reports he is eating as well as usual. Pt has no nutrition related questions at this time Encouraged protein to help pt maintain muscle mass RD following
[2018-10-11 13:00] VITALS: BP 114/73
--- NOTE | 2018-10-11 15:10 | NUR ---
Wound care consult: Pt has a ruptured blister on his right heel measuring 6cm x 6cm. This is a stage 2 pressure injury. Bilateral legs are edematous - left moreso than the right. Left #5 toe has a large corn with dry, peeling skin. Recommend covering ruptured blister with mepilex border for protection and elevating heels off of the bed. Wound care will continue monitoring.
[2018-10-11 15:57] VITALS: BP 123/72
--- NOTE | 2018-10-11 16:49 | NUR ---
OT NOTE: PT REQUIRED MAX A FOR SIMPLE BED MOB. PT COMPLETED HYGIENE TASKS WITH MAX A. THANK YOU, MARGUERITE BUTTERFIELD
--- NOTE | 2018-10-11 17:41 | MORECARE ---
CASE MANAGEMENT DISCHARGE SUMMARY PATIENT: SAMIA HERNANDEZ UNIT: [id number] ADM DATE: 09/29/18 AGE: 58 : 64 SEX: M ROOM/BED: D.1203 AUTHOR: MADELINEDOC PHYSICIAN: REFERRING PHYSICIAN: SOPHIA HARRIS MD DATE OF SERVICE: 10/11/18 Discharge Plan Patient Name: SAMIA HERNANDEZ Facility: [facility]:[place] : 1960 Planned Disposition: Anticipated Discharge Date: Discharge Date: Expected LOS: Initial Reviewer: [id number] Initial Review Date: 10/01/2018 Generated: 10/11/18 6:41 pm Comments DCP- Discharge Planning Updated by [email or web address]: Constanza Gauthier on 10/11/18 4:[address] Patient Name: SAMIA HERNANDEZ Admission Status: ER Accout number: [id number] Admission Date: 09-29-2018 : 1960 Admission Diagnosis:SEPSIS, UNSPECIFIED ORGANISM Attending: SOPHIA HARRIS Current LOS: 12 Anticipated DC Date: Planned Disposition: Primary Insurance: [employer] Discharge Planning Comments: CM SPOKE WITH PATIENT THIS MORNING ABOUT DC PLANNING. HE WAS REFUSING PT AND SPOKE WITH HIM OF THE IMPORTANCE OF PT AND TO GET HIM PROPER PLACEMENT WHEN DC'D. HE WANTED ME TO WAIT AND TALK WHEN HIS IS HERE ALSO. ORIGINALLY INPT REHAB PLACEMENT WAS PUT IN BUT I LOOKED AT REHAB NOTE AND IT SAYS HIS INS WON'T AUTH IT. WILL TALK TO HIM AND HIS ABOUT SNF. IT IS LATE IN THE DAY WHEN I SEEN THE REHAB RESULTS, THEREFORE I WILL FOLLOW UP WITH THIS. CM WILL FOLLOW AND ASSIST NEEDED WITH DC PLANNING/NEEDS. Photoengraving Proofer: Constanza Gauthier DCP- Discharge Planning Updated by [email or web address]: Constanza Gauthier on 10/01/18 8:[address] Patient Name: SAMIA HERNANDEZ Admission Status: ER Accout number: [id number] Admission Date: 09-29-2018 : 1960 Admission Diagnosis: Attending: SOPHIA HARRIS Current LOS: 2 Anticipated DC Date: Planned Disposition: Primary Insurance: [employer] [facility] Discharge Planning Comments: CM MET WITH PATIENT AND FAMILY ABOUT DC PLANNING/NEEDS. STATES IF THE DOCTOR IS TO SEND HIM HOME ON IV ANTIBIOTICS HE WILL NEED AN IFUSION COMPANY AND HH AGENCY. FLORINA SIGNED, PATIENT STATES ANY HH AND INFUSION SERVICE WILL BE FINE. CM WILL FOLLOW AND ASSIST NEEDED WITH DC PLANNING NEEDS. WILL SEND REFERRALS WHEN IT IS KNOWN IF HE NEEDS HOME IV ANTIBIOTICS. STATES IF HE DOESN'T THEN HE DOESN'T NEED HH. PCP IS JUANA. PHARMACY IS [facility]. CONTACT IS HUSAM AT [phone] Photoengraving Proofer: Constanza Gauthier Coverage Notice Reviewer: [id number] - Constanza Gauthier Notice Issued Date-Time: 10/01/2018 9:46 Notice Type: Patient Choice Letter Notice Delivered To: Patient Relationship to Patient: Self Thread Checker Name: Delivery Method: HAND - Hand Delivered Claudine Days: Prior Verbal Notification: Recipient Understood Notice: Yes Recipient Signature: Yes Med Rec Note Co-signed by Attending: Coverage Notice Comment: INFUSION COMPANY , ANY HH COMPANY, ANY PATIENT LIVES IN [place] Last DP export: 10/01/18 8:47 a Patient Name: SAMIA HERNANDEZ Page [phone] at 1741 All edits/amendments must be made on the electronic document DICTATION DATE: 10/11/181740 TOWEL WEAVER: JUDITH 10/11/181740 RPT#: [id number] DC DATE: STATUS: ADM IN [facility] [address] [place] [address] END OF REPORT
--- NOTE | 2018-10-11 19:50 | NUR ---
PATIENT RESTING IN BED WITH EYES CLOSED AND NO S/S OF DISTRESS. GUEST AT BEDSIDE. BED IN LOWEST POSITION AND CALL LIGHT WITHIN REACH. WILL CONTINUE TO MONITOR.
[2018-10-11 20:00] VITALS: BP 109/74
[2018-10-12] VITALS: BP 114/74
[2018-10-12 04:30] VITALS: BP 111/79
[2018-10-12 07:29] LABS: BASOPHILS 0.5 % (0-2); EOSINOPHILS 1.1 % (0-7); HEMATOCRIT 34.5 % (42.0-54.0); HEMOGLOBIN 11.6 g/dL (13.5-17.5); IMMATURE GRANULOCYTES 0.5 % (0-5); LYMPHOCYTES 17.6 % (15-50); MCH 31.6 pg (26.0-34.0); MCHC 33.6 g/dL (31.0-37.0); MONOCYTES 9.6 % (2-11); NEUTROPHILS 70.7 % (40-80); PLATELET COUNT 504 10x3/uL (130-400); RBC 3.67 10x6/uL (4.20-6.10); RDW 13.1 % (11.5-14.5); WBC 13.2 10x3/uL (4.8-10.8)
[2018-10-12 07:37] LABS: ANION GAP 15.2 mmol/L (8-16); CALCIUM 8.7 mg/dL (8.5-10.1); CARBON DIOXIDE 26.3 mmol/L (21.0-32.0); CREATININE - SERUM 1.2 mg/dL (0.6-1.3); POTASSIUM - SERUM 3.5 mmol/L (3.5-5.1)
[2018-10-12 09:01] VITALS: BP 129/82
[2018-10-12 12:08] VITALS: BP 111/86
[2018-10-12 15:26] VITALS: BP 134/69
--- NOTE | 2018-10-12 17:13 | NUR ---
OT NOTE: PT REQUIRED MAX A FOR BED MOB TASKS. THANK YOU, MARGUERITE BUTTERFIELD
--- NOTE | 2018-10-12 17:44 | NUR ---
OT NOTE: PERFORMED BED MOB WITH MOD ASSIST; REQUIRED INCREASED ASSIST WITH MOVING LES. PT WITH CONTINUED C/O PAIN OF 9/10 WITH ALL LE MOVEMENT. SITTING ON EDGE OF BED WITHOUT ASSIST; ATTEMPTED SIT TO STAND WITH USE OF WALKER AND MOD ASSIST X APPROX 15-20 SECONDS EACH TIME; UE/LE EXS; USE OF TRAPEZE FOR UE STRENGHTENING. MAYRA REA, OTR/L
--- NOTE | 2018-10-12 19:41 | NUR ---
PATIENT RESTING IN BED WITH EYES CLOSED AND NO S/S OF DISTRESS. AT BEDSIDE AND DENIES NEEDS AT THIS TIME. BED IN LOWEST POSITION AND CALL LIGHT WITHIN REACH. WILL CONTINUE TO MONITOR/
[2018-10-12 20:31] VITALS: BP 103/70
[2018-10-13] VITALS: BP 109/77
[2018-10-13 05:42] VITALS: BP 122/82
--- NOTE | 2018-10-13 06:38 | NUR ---
NOTIFIED BY BOTTLE HOUSE CLEANERS SUPERVISOR THAT HE THOUGHT THE PATIENT MAY BE HAVING A SEIZURE. AT BEDSIDE. ASSESSED PATIENT. NO SEIZURE LIKE ACTIVITY AT THIS TIME. PATIENT IS A&O X4, PUPILS ARE EQUAL AND REACTIVE TO LIGHT, AND PATIENT STATES HE "FEELS FINE".
--- NOTE | 2018-10-13 07:00 | NUR ---
RESTING QUIETLY IN BED, ALERT, AGITATED, SPOUSE AT BEDSIDE, DENIED NEEDS AT THIS TIME, CALL LIGHT AT HAND, INSTRUCTED TO CALL WITH NEEDS.
[2018-10-13 09:09] LABS: BASOPHILS 0.3 % (0-2); EOSINOPHILS 1.2 % (0-7); HEMATOCRIT 36.7 % (42.0-54.0); HEMOGLOBIN 12.4 g/dL (13.5-17.5); IMMATURE GRANULOCYTES 0.7 % (0-5); LYMPHOCYTES 15.1 % (15-50); MCH 31.7 pg (26.0-34.0); MCHC 33.8 g/dL (31.0-37.0); MCV 93.9 fL (80.0-100.0); MEAN PLATELET VOLUME 9.8 fL (7.4-10.4); MONOCYTES 7.6 % (2-11); NEUTROPHILS 75.1 % (40-80); PLATELET COUNT 476 10x3/uL (130-400); RBC 3.91 10x6/uL (4.20-6.10); RDW 13.2 % (11.5-14.5); WBC 12.2 10x3/uL (4.8-10.8)
[2018-10-13 09:17] LABS: ANION GAP 11.6 mmol/L (8-16); CALCIUM 9.2 mg/dL (8.5-10.1); CARBON DIOXIDE 30.7 mmol/L (21.0-32.0); CREATININE - SERUM 1.2 mg/dL (0.6-1.3); POTASSIUM - SERUM 3.3 mmol/L (3.5-5.1)
[2018-10-13 09:21] VITALS: BP 116/83
--- NOTE | 2018-10-13 12:14 | MORECARE ---
CASE MANAGEMENT DISCHARGE SUMMARY PATIENT: SAMIA HERNANDEZ UNIT: [id number] ADM DATE: 09/29/18 AGE: 58 : 64 SEX: M ROOM/BED: D.1203 AUTHOR: MADELINEDOC PHYSICIAN: REFERRING PHYSICIAN: SOPHIA HARRIS MD DATE OF SERVICE: 10/13/18 Discharge Plan Patient Name: SAMIA HERNANDEZ Facility: [facility]:[place] : 1960 Planned Disposition: Anticipated Discharge Date: Discharge Date: Expected LOS: Initial Reviewer: [email or web address] Initial Review Date: 10/01/2018 Generated: 10/13/18 1:14 pm Comments DCP- Discharge Planning Updated by [id number]: Constanza Gauthier on 10/11/18 4:[address] Patient Name: SAMIA HERNANDEZ Admission Status: ER Accout number: [id number] Admission Date: 09-29-2018 : 1960 Admission Diagnosis:SEPSIS, UNSPECIFIED ORGANISM Attending: SOPHIA HARRIS Current LOS: 12 Anticipated DC Date: Planned Disposition: Primary Insurance: [place] Discharge Planning Comments: CM SPOKE WITH PATIENT THIS MORNING ABOUT DC PLANNING. HE WAS REFUSING PT AND SPOKE WITH HIM OF THE IMPORTANCE OF PT AND TO GET HIM PROPER PLACEMENT WHEN DC'D. HE WANTED ME TO WAIT AND TALK WHEN HIS IS HERE ALSO. ORIGINALLY INPT REHAB PLACEMENT WAS PUT IN BUT I LOOKED AT REHAB NOTE AND IT SAYS HIS INS WON'T AUTH IT. WILL TALK TO HIM AND HIS ABOUT SNF. IT IS LATE IN THE DAY WHEN I SEEN THE REHAB RESULTS, THEREFORE I WILL FOLLOW UP WITH THIS. CM WILL FOLLOW AND ASSIST NEEDED WITH DC PLANNING/NEEDS. Human Resources Hr Representative: Constanza Gauthier DCP- Discharge Planning Updated by [email or web address]: Constanza Gauthier on 10/01/18 8:[address] Patient Name: SAMIA HERNANDEZ Admission Status: ER Accout number: [id number] Admission Date: 09-29-2018 : 1960 Admission Diagnosis: Attending: SOPHIA HARRIS Current LOS: 2 Anticipated DC Date: Planned Disposition: Primary Insurance: [employer] [facility] Discharge Planning Comments: CM MET WITH PATIENT AND FAMILY ABOUT DC PLANNING/NEEDS. STATES IF THE DOCTOR IS TO SEND HIM HOME ON IV ANTIBIOTICS HE WILL NEED AN IFUSION COMPANY AND HH AGENCY. FLORINA SIGNED, PATIENT STATES ANY HH AND INFUSION SERVICE WILL BE FINE. CM WILL FOLLOW AND ASSIST NEEDED WITH DC PLANNING NEEDS. WILL SEND REFERRALS WHEN IT IS KNOWN IF HE NEEDS HOME IV ANTIBIOTICS. STATES IF HE DOESN'T THEN HE DOESN'T NEED HH. PCP IS JUANA. PHARMACY IS [facility]. CONTACT IS HUSAM AT [phone] Human Resources Hr Representative: Constanza Gauthier External Providers External Provider: [facility] Next Contact Date: Service Request Date: Service Type: Resolution: Reviewer: Comments: Coverage Notice Reviewer: [email or web address] Chuck Gauthier Notice Issued Date-Time: 10/01/2018 9:46 Notice Type: Patient Choice Letter Notice Delivered To: Patient Relationship to Patient: Self Laborer Tanbark Name: Delivery Method: HAND - Hand Delivered Claudine Days: Prior Verbal Notification: Recipient Understood Notice: Yes Recipient Signature: Yes Med Rec Note Co-signed by Attending: Coverage Notice Comment: INFUSION COMPANY , ANY HH COMPANY, ANY PATIENT LIVES IN [place] Reviewer: [id number] Chuck Gauthier Notice Issued Date-Time: 10/13/2018 12:12 Notice Type: Patient Choice Letter Notice Delivered To: Family Member Relationship to Patient: Spouse Laborer Tanbark Name: HUSAM Delivery Method: - Claudine Days: Prior Verbal Notification: Recipient Understood Notice: Recipient Signature: Med Rec Note Co-signed by Attending: Coverage Notice Comment: Last DP export: 10/11/18 4:41 p Patient Name: SAMIA HERNANDEZ Page [phone] at 1214 All edits/amendments must be made on the electronic document DICTATION DATE: 10/13/18 1214 BUSINESS ADMINISTRATION PROFESSOR: JUDITH 10/13/18 1214 RPT#: [id number] DC DATE: STATUS: ADM IN [facility] [address] [place] [address] END OF REPORT
--- NOTE | 2018-10-13 12:38 | MORECARE ---
CASE MANAGEMENT DISCHARGE SUMMARY PATIENT: SAMIA HERNANDEZ UNIT: [id number] ADM DATE: 09/29/18 AGE: 58 : 64 SEX: M ROOM/BED: D.1203 AUTHOR: MADELINEDOC PHYSICIAN: REFERRING PHYSICIAN: SOPHIA HARRIS MD DATE OF SERVICE: 10/13/18 Discharge Plan Patient Name: SAMIA HERNANDEZ Facility: [facility]:[place] : 1960 Planned Disposition: Anticipated Discharge Date: Discharge Date: Expected LOS: Initial Reviewer: [email or web address] Initial Review Date: 10/01/2018 Generated: 10/13/18 1:38 pm Comments DCP- Discharge Planning Updated by [email or web address]: Constanza Gauthier on 10/13/18 11:[address] Patient Name: SAMIA HERNANDEZ Admission Status: ER Accout number: [id number] Admission Date: 09-29-2018 : 1960 Admission Diagnosis:SEPSIS, UNSPECIFIED ORGANISM Attending: SOPHIA HARRIS Current LOS: 14 Anticipated DC Date: Planned Disposition: Primary Insurance: [employer] [facility] Discharge Planning Comments: PATIENT SIGNED FLORINA FORM FOR [facility] [place]. CM WILL START THE REFERRAL PROCESS. Ux Specialist: Constanza Gauthier DCP- Discharge Planning Updated by [email or web address]: Constanza Gauthier on 10/11/18 4:[address] Patient Name: SAMIA HERNANDEZ Admission Status: ER Accout number: [id number] Admission Date: 09-29-2018 : 1960 Admission Diagnosis:SEPSIS, UNSPECIFIED ORGANISM Attending: SOPHIA HARRIS Current LOS: 12 Anticipated DC Date: Planned Disposition: Primary Insurance: [employer] [facility] Discharge Planning Comments: CM SPOKE WITH PATIENT THIS MORNING ABOUT DC PLANNING. HE WAS REFUSING PT AND SPOKE WITH HIM OF THE IMPORTANCE OF PT AND TO GET HIM PROPER PLACEMENT WHEN DC'D. HE WANTED ME TO WAIT AND TALK WHEN HIS IS HERE ALSO. ORIGINALLY INPT REHAB PLACEMENT WAS PUT IN BUT I LOOKED AT REHAB NOTE AND IT SAYS HIS INS WON'T AUTH IT. WILL TALK TO HIM AND HIS ABOUT SNF. IT IS LATE IN THE DAY WHEN I SEEN THE REHAB RESULTS, THEREFORE I WILL FOLLOW UP WITH THIS. CM WILL FOLLOW AND ASSIST NEEDED WITH DC PLANNING/NEEDS. Ux Specialist: Constanza Gauthier DCP- Discharge Planning Updated by [email or web address]: Constanza Gauthier on 10/01/18 8:[address] Patient Name: SAMIA HERNANDEZ Admission Status: ER Accout number: [id number] Admission Date: 09-29-2018 : 1960 Admission Diagnosis: Attending: SOPHIA HARRIS Current LOS: 2 Anticipated DC Date: Planned Disposition: Primary Insurance: [employer] [place] Discharge Planning Comments: CM MET WITH PATIENT AND FAMILY ABOUT DC PLANNING/NEEDS. STATES IF THE DOCTOR IS TO SEND HIM HOME ON IV ANTIBIOTICS HE WILL NEED AN IFUSION COMPANY AND HH AGENCY. FLORINA SIGNED, PATIENT STATES ANY HH AND INFUSION SERVICE WILL BE FINE. CM WILL FOLLOW AND ASSIST NEEDED WITH DC PLANNING NEEDS. WILL SEND REFERRALS WHEN IT IS KNOWN IF HE NEEDS HOME IV ANTIBIOTICS. STATES IF HE DOESN'T THEN HE DOESN'T NEED HH. PCP IS JUANA. PHARMACY IS [facility]. CONTACT IS HUSAM AT [phone] Ux Specialist: Constanza Gauthier Coverage Notice Reviewer: [id number] - Constanza Gauthier Notice Issued Date-Time: 10/01/2018 9:46 Notice Type: Patient Choice Letter Notice Delivered To: Patient Relationship to Patient: Self Oil Spraying Machine Operator Name: Delivery Method: HAND - Hand Delivered Claudine Days: Prior Verbal Notification: Recipient Understood Notice: Yes Recipient Signature: Yes Med Rec Note Co-signed by Attending: Coverage Notice Comment: INFUSION COMPANY , ANY HH COMPANY, ANY PATIENT LIVES IN [place] Reviewer: [id number] Chuck Gauthier Notice Issued Date-Time: 10/13/2018 12:12 Notice Type: Patient Choice Letter Notice Delivered To: Family Member Relationship to Patient: Spouse Oil Spraying Machine Operator Name: HUSAM Delivery Method: - Claudine Days: Prior Verbal Notification: Recipient Understood Notice: Recipient Signature: Med Rec Note Co-signed by Attending: Coverage Notice Comment: Last DP export: 10/13/18 11:14 a Patient Name: SAMIA HERNANDEZ Page [id number] at 1238 All edits/amendments must be made on the electronic document DICTATION DATE: 10/13/18 1234 TOUR NARRATOR: DM 10/13/18 1237 RPT#: [id number] DC DATE: STATUS: ADM IN [facility] [address] [place] [address] END OF REPORT
[2018-10-13 13:59] VITALS: BP 109/76
--- NOTE | 2018-10-13 14:25 | MORECARE ---
CASE MANAGEMENT DISCHARGE SUMMARY PATIENT: SAMIA HERNANDEZ UNIT: [id number] ADM DATE: 09/29/18 AGE: 58 : 64 SEX: M ROOM/BED: D.1203 AUTHOR: MADELINEDOC PHYSICIAN: REFERRING PHYSICIAN: SOPHIA HARRIS MD DATE OF SERVICE: 10/13/18 Discharge Plan Patient Name: SAMIA HERNANDEZ Facility: [facility]:[place] : 1960 Planned Disposition: Anticipated Discharge Date: Discharge Date: Expected LOS: Initial Reviewer: [email or web address] Initial Review Date: 10/01/2018 Generated: 10/13/18 3:25 pm Comments DCP- Discharge Planning Updated by [email or web address]: Constanza Gauthier on 10/13/18 11:[address] Patient Name: SAMIA HERNANDEZ Admission Status: ER Accout number: [id number] Admission Date: 09-29-2018 : 1960 Admission Diagnosis:SEPSIS, UNSPECIFIED ORGANISM Attending: SOPHIA HARRIS Current LOS: 14 Anticipated DC Date: Planned Disposition: Primary Insurance: [employer] [facility] Discharge Planning Comments: PATIENT SIGNED FLORINA FORM FOR SN[facility] IN [place]. CM WILL START THE REFERRAL PROCESS. Global Head Advertiser Solutions: Constanza Gauthier DCP- Discharge Planning Updated by [email or web address]: Constanza Gauthier on 10/11/18 4:[address] Patient Name: SAMIA HERNANDEZ Admission Status: ER Accout number: [id number] Admission Date: 09-29-2018 : 1960 Admission Diagnosis:SEPSIS, UNSPECIFIED ORGANISM Attending: SOPHIA HARRIS Current LOS: 12 Anticipated DC Date: Planned Disposition: Primary Insurance: [employer] [facility] [place] Discharge Planning Comments: CM SPOKE WITH PATIENT THIS MORNING ABOUT DC PLANNING. HE WAS REFUSING PT AND SPOKE WITH HIM OF THE IMPORTANCE OF PT AND TO GET HIM PROPER PLACEMENT WHEN DC'D. HE WANTED ME TO WAIT AND TALK WHEN HIS IS HERE ALSO. ORIGINALLY INPT REHAB PLACEMENT WAS PUT IN BUT I LOOKED AT REHAB NOTE AND IT SAYS HIS INS WON'T AUTH IT. WILL TALK TO HIM AND HIS ABOUT SNF. IT IS LATE IN THE DAY WHEN I SEEN THE REHAB RESULTS, THEREFORE I WILL FOLLOW UP WITH THIS. CM WILL FOLLOW AND ASSIST NEEDED WITH DC PLANNING/NEEDS. Global Head Advertiser Solutions: Constanza Gauthier DCP- Discharge Planning Updated by [email or web address]: Constanza Gauthier on 10/01/18 8:[address] Patient Name: SAMIA HERNANDEZ Admission Status: ER Accout number: [id number] Admission Date: 09-29-2018 : 1960 Admission Diagnosis: Attending: SOPHIA HARRIS Current LOS: 2 Anticipated DC Date: Planned Disposition: Primary Insurance: [employer] [place] Discharge Planning Comments: CM MET WITH PATIENT AND FAMILY ABOUT DC PLANNING/NEEDS. STATES IF THE DOCTOR IS TO SEND HIM HOME ON IV ANTIBIOTICS HE WILL NEED AN IFUSION COMPANY AND HH AGENCY. FLORINA SIGNED, PATIENT STATES ANY HH AND INFUSION SERVICE WILL BE FINE. CM WILL FOLLOW AND ASSIST NEEDED WITH DC PLANNING NEEDS. WILL SEND REFERRALS WHEN IT IS KNOWN IF HE NEEDS HOME IV ANTIBIOTICS. STATES IF HE DOESN'T THEN HE DOESN'T NEED HH. PCP IS JUANA. PHARMACY IS [facility]. CONTACT IS HUSAM AT [phone] Global Head Advertiser Solutions: Constanza Gauthier Coverage Notice Reviewer: [id number] - Constanza Gauthier Notice Issued Date-Time: 10/01/2018 9:46 Notice Type: Patient Choice Letter Notice Delivered To: Patient Relationship to Patient: Self Manager Equity Name: Delivery Method: HAND - Hand Delivered Claudine Days: Prior Verbal Notification: Recipient Understood Notice: Yes Recipient Signature: Yes Med Rec Note Co-signed by Attending: Coverage Notice Comment: INFUSION COMPANY , ANY HH COMPANY, ANY PATIENT LIVES IN [place] Reviewer: [id number] Chuck Gauthier Notice Issued Date-Time: 10/13/2018 12:12 Notice Type: Patient Choice Letter Notice Delivered To: Family Member Relationship to Patient: Spouse Manager Equity Name: HUSAM Delivery Method: - Claudine Days: Prior Verbal Notification: Recipient Understood Notice: Recipient Signature: Med Rec Note Co-signed by Attending: Coverage Notice Comment: Last DP export: 10/13/18 11:38 a Patient Name: SAMIA HERNANDEZ Page [id number] at 1426 All edits/amendments must be made on the electronic document DICTATION DATE: 10/13/18 1428 STATE TESTED NURSING ASSISTANT: JUDITH 10/13/18 1425 RPT#: [id number] DC DATE: STATUS: ADM IN [facility] [address] [place] [address] END OF REPORT
--- NOTE | 2018-10-13 15:22 | NUR ---
OT NOTE: PT REFUSED THERAPY IN AM. REPORTED THAT HE HAD A SEIZURE THIS AM AND IF "MAN" HAD NOT BEEN THERE TO CATCH HIM, HE WOULD HAVE FALLEN OFF THE BED. AT BEDSIDE, SHAKING HER HEAD NO. WHEN SHE ATTEMPTED TO DISPUTE HIS VERSION OF THE STORY, HE BECAME AGITATED TOWARDS HER. ENCOURAGED PT TO ATTEMPT TO SIT UP ON EDGE OF BED, BUT HE STATED THAT HE COULD NOT MOVE. MAYRA REA, OTR/L
[2018-10-13 17:03] VITALS: BP 128/71
--- NOTE | 2018-10-13 19:40 | NUR ---
PT SITTING UP IN BED MOANING AND RESTLESS. STATES HE IS HAVING PAIN IN LT ANKLE/LEG. REDNESS NOTED TO LLE AND RUE. PEDAL PULSES ARE WEAK. ALERT AND ORIENTED BUT SOME CONFUSION NOTED. AT BEDSIDE. 1+ EDEMA NOTED TO RLE. 2+ EDEMA NOTED TO LLE. RESP IRREG. RATES PAIN 10. SALINE LOCK NOTED TO LT AC. SR ELEVATED X2. CL IN REACH.
[2018-10-13 20:00] VITALS: BP 116/74
--- NOTE | 2018-10-13 20:00 | NUR ---
MEDICATED WITH DILAUDID FOR C/O PAIN IN LLE RATING 10. AT BEDSIDE. CL IN REACH.
--- NOTE | 2018-10-13 21:30 | NUR ---
STATES PAIN MED HELPED. JOKING AND TALKATIVE NOW. IN ROOM. NO DISTRESS. CL IN REACH.
[2018-10-14 00:30] VITALS: BP 91/58
--- NOTE | 2018-10-14 03:29 | NUR ---
HAS RESTED WELL SO FAR TONIGHT. AT BEDSIDE. CL IN REACH.
[2018-10-14 04:30] VITALS: BP 136/80
[2018-10-14 06:42] LABS: BASOPHILS 0.7 % (0-2); EOSINOPHILS 2.1 % (0-7); HEMATOCRIT 35.6 % (42.0-54.0); HEMOGLOBIN 11.9 g/dL (13.5-17.5); IMMATURE GRANULOCYTES 0.8 % (0-5); LYMPHOCYTES 20.6 % (15-50); MCH 31.2 pg (26.0-34.0); MCHC 33.4 g/dL (31.0-37.0); MCV 93.2 fL (80.0-100.0); MEAN PLATELET VOLUME 9.8 fL (7.4-10.4); NEUTROPHILS 66.8 % (40-80); PLATELET COUNT 459 10x3/uL (130-400); RBC 3.82 10x6/uL (4.20-6.10); RDW 12.9 % (11.5-14.5); WBC 10.2 10x3/uL (4.8-10.8)
[2018-10-14 06:56] LABS: ANION GAP 12.1 mmol/L (8-16); CALCIUM 8.8 mg/dL (8.5-10.1); CREATININE - SERUM 1.2 mg/dL (0.6-1.3); POTASSIUM - SERUM 3.1 mmol/L (3.5-5.1)
--- NOTE | 2018-10-14 07:20 | NUR ---
INITIAL ROUNDING ON THE PATIENT, HE IS SLEEPING, SNORING SUPINE WITH HOB UP APPROX 20 DEGREES, SPOUSE ASLEEP IN BEDSIDE NHI. NO S/S OF SOB/DISTRESS NOTED. WHITE BOARD UPDATED.
--- NOTE | 2018-10-14 09:54 | NUR ---
THE SPOUSE REPORTS SHE HAS BEEN GIVING THE PATIETN MOTRI, 3 PILLS AT A TIME FOR PAIN
[2018-10-14 10:11] VITALS: BP 108/62
--- NOTE | 2018-10-14 11:21 | NUR ---
OT NOTE: PT PERFORMED MUCH BETTER TODAY. HE WAS ABLE TO GET LEGS OFF OF EDGE OF BED WITH MIN ASSIST AND PERFORMED SUPINE TO SIT WITH MIN ASSIST; STATIC SITTING ON EDGE OF BED AND WAS ABLE TO SCOOT TO EDGE WITHOUT ASSIST AND LOWER FEET TO FLOOR. ( WE HAVE BEEN HAVING TO HOLD THEM IN EXTENSION DUE TO PAIN). EXS TO IMPROVE STRENGTH AND ROM; UE STRENGTHENING WITH USE OF TRAPEZE BAR. MAYRA REA, OTR/L
--- NOTE | 2018-10-14 13:26 | NUR ---
Nutrition Follow Up: Pt stated that his appetite is fair but he hates the food here. He said that family/friends are bringing some food in from outside. Pt stated that he has never been a "big eater." RD encouraged pt to increase po intake as able. RD encouraged pt to increase protein intake to aid in wound healing and pt stated that he always eats the meat at a meal first. Diet: AHA PO Intake: 58% meal avg BM: 10/03/18 - no BM x 11 days? Wt loss noted Noted pt with stage II ulcer to R heel Labs reviewed Meds noted including Lasix Will change diet to regular to encourage po intake. Will honor food preferences. RD following.
--- NOTE | 2018-10-14 13:32 | NUR ---
VP OF TECHNOLOGY REPORTED THE PATIENT WAS REQUESTING PAIN MEDICATION, WHEN THIS NURSE JUST WENT TO ASSESS THE PAIN, THE PATIENT IS SNORING, SUPINE WITH HOB AT 45 DEGREES
[2018-10-14 14:35] VITALS: BP 96/70
--- NOTE | 2018-10-14 16:16 | MORECARE ---
CASE MANAGEMENT DISCHARGE SUMMARY PATIENT: SAMIA HERNANDEZ UNIT: [id number] ADM DATE: 09/29/18 AGE: 58 : 64 SEX: M ROOM/BED: D.1203 AUTHOR: MADELINEDOC PHYSICIAN: REFERRING PHYSICIAN: SOPHIA HARRIS MD DATE OF SERVICE: 10/14/18 Discharge Plan Patient Name: SAMIA HERNANDEZ Facility: [facility]:[place] : 1960 Planned Disposition: Anticipated Discharge Date: Discharge Date: Expected LOS: Initial Reviewer: [id number] Initial Review Date: 10/01/2018 Generated: 10/14/18 5:15 pm Comments DCP- Discharge Planning Updated by [email or web address]: Constanza Gauthier on 10/14/18 3:[address] Patient Name: SAMIA HERNANDEZ Admission Status: ER Accout number: [id number] Admission Date: 09-29-2018 : 1960 Admission Diagnosis:SEPSIS, UNSPECIFIED ORGANISM Attending: SOPHIA HARRIS Current LOS: 15 Anticipated DC Date: Planned Disposition: Primary Insurance: [employer] [facility] [place]charge Planning Comments: RECIEVED CALL FROM [facility] AND THEY HAVE ACCEPTED THE PATIENT. THEY ARE PLANNING TO GET HIM TOMORROW WHEN DISCHARGED. CM WILL FOLLOW AND ASSIST NEEDED WITH DC PLANNING/NEEDS. Brick Shader: Constanza Gauthier DCP- Discharge Planning Updated by [email or web address]: Constanza Gauthier on 10/13/18 11:[address] Patient Name: SAMIA HERNANDEZ Admission Status: ER Accout number: [id number] Admission Date: 09-29-2018 : 1960 Admission Diagnosis:SEPSIS, UNSPECIFIED ORGANISM Attending: SOPHIA HARRIS Current LOS: 14 Anticipated DC Date: Planned Disposition: Primary Insurance: [employer] [facility] Discharge Planning Comments: PATIENT SIGNED FLORINA FORM FOR SNF OF [facility] IN [place]. CM WILL START THE REFERRAL PROCESS. Brick Shader: Constanza Gauthier DCP- Discharge Planning Updated by [email or web address]: Constanza Gauthier on 10/11/18 4:[address] Patient Name: SAMIA HERNANDEZ Admission Status: ER Accout number: [id number] Admission Date: 09-29-2018 : 1960 Admission Diagnosis:SEPSIS, UNSPECIFIED ORGANISM Attending: SOPHIA HARRIS Current LOS: 12 Anticipated DC Date: Planned Disposition: Primary Insurance: [employer] [facility] Discharge Planning Comments: CM SPOKE WITH PATIENT THIS MORNING ABOUT DC PLANNING. HE WAS REFUSING PT AND SPOKE WITH HIM OF THE IMPORTANCE OF PT AND TO GET HIM PROPER PLACEMENT WHEN DC'D. HE WANTED ME TO WAIT AND TALK WHEN HIS IS HERE ALSO. ORIGINALLY INPT REHAB PLACEMENT WAS PUT IN BUT I LOOKED AT REHAB NOTE AND IT SAYS HIS INS WON'T AUTH IT. WILL TALK TO HIM AND HIS ABOUT SNF. IT IS LATE IN THE DAY WHEN I SEEN THE REHAB RESULTS, THEREFORE I WILL FOLLOW UP WITH THIS. CM WILL FOLLOW AND ASSIST NEEDED WITH DC PLANNING/NEEDS. Brick Shader: Constanza Gauthier DCP- Discharge Planning Updated by [email or web address]: Constanza Gauthier on 10/01/18 8:[address] Patient Name: SAMIA HERNANDEZ Admission Status: ER Accout number: [id number] Admission Date: 09-29-2018 : 1960 Admission Diagnosis: Attending: SOPHIA HARRIS Current LOS: 2 Anticipated DC Date: Planned Disposition: Primary Insurance: [employer] [facility] Discharge Planning Comments: CM MET WITH PATIENT AND FAMILY ABOUT DC PLANNING/NEEDS. STATES IF THE DOCTOR IS TO SEND HIM HOME ON IV ANTIBIOTICS HE WILL NEED AN IFUSION COMPANY AND HH AGENCY. FLORINA SIGNED, PATIENT STATES ANY HH AND INFUSION SERVICE WILL BE FINE. CM WILL FOLLOW AND ASSIST NEEDED WITH DC PLANNING NEEDS. WILL SEND REFERRALS WHEN IT IS KNOWN IF HE NEEDS HOME IV ANTIBIOTICS. STATES IF HE DOESN'T THEN HE DOESN'T NEED HH. PCP IS JUANA. PHARMACY IS [facility] CONTACT IS HUSAM AT [phone] Brick Shader: Constanza Gauthier Coverage Notice Reviewer: [id number] Chuck Gauthier Notice Issued Date-Time: 10/01/2018 9:46 Notice Type: Patient Choice Letter Notice Delivered To: Patient Relationship to Patient: Self Regional Marketing Director Name: Delivery Method: HAND - Hand Delivered Claudine Days: Prior Verbal Notification: Recipient Understood Notice: Yes Recipient Signature: Yes Med Rec Note Co-signed by Attending: Coverage Notice Comment: INFUSION COMPANY , ANY HH COMPANY, ANY PATIENT LIVES IN [place] Reviewer: [id number] Chuck Gauthier Notice Issued Date-Time: 10/13/2018 12:12 Notice Type: Patient Choice Letter Notice Delivered To: Family Member Relationship to Patient: Spouse Regional Marketing Director Name: HUSAM Delivery Method: - Claudine Days: Prior Verbal Notification: Recipient Understood Notice: Recipient Signature: Med Rec Note Co-signed by Attending: Coverage Notice Comment: Last DP export: 10/13/18 1:25 p Patient Name: SAMIA HERNANDEZ Page [id number] at 1616 All edits/amendments must be made on the electronic document DICTATION DATE: 10/14/18 1615 DISTRICT REPRESENTATIVE: JUDITH 10/14/18 1615 RPT#: [id number] CT DATE: STATUS: ADM IN [facility] [address] [place] [address] END OF REPORT
--- NOTE | 2018-10-14 16:25 | MORECARE ---
CASE MANAGEMENT DISCHARGE SUMMARY PATIENT: SAMIA HERNANDEZ UNIT: [id number] ADM DATE: 09/29/18 AGE: 58 : 64 SEX: M ROOM/BED: D.1203 AUTHOR: MADELINEDOC PHYSICIAN: REFERRING PHYSICIAN: SOPHIA HARRIS MD DATE OF SERVICE: 10/14/18 Discharge Plan Patient Name: SAMIA HERNANDEZ Facility: [facility]:[place] : 1960 Planned Disposition: Fci Facility Anticipated Discharge Date: 10/15/18 Discharge Date: Expected LOS: 16 Initial Reviewer: [id number] Initial Review Date: 10/01/2018 Generated: 10/14/18 5:25 pm Comments DCP- Discharge Planning Updated by [email or web address]: Constanza Gauthier on 10/14/18 3:[address] Patient Name: SAMIA HERNANDEZ Admission Status: ER Accout number: [id number] Admission Date: 09-29-2018 : 1960 Admission Diagnosis:SEPSIS, UNSPECIFIED ORGANISM Attending: SOPHIA HARRIS Current LOS: 15 Anticipated DC Date: Planned Disposition: Primary Insurance: [employer] [facility] Discharge Planning Comments: RECIEVED CALL FROM [facility] AND THEY HAVE ACCEPTED THE PATIENT. THEY ARE PLANNING TO GET HIM TOMORROW WHEN DISCHARGED. CM WILL FOLLOW AND ASSIST NEEDED WITH DC PLANNING/NEEDS. Order Worker: Constanza Gauthier DCP- Discharge Planning Updated by [id number]: Constanza Gauthier on 10/13/18 11:[address] Patient Name: SAMIA HERNANDEZ Admission Status: ER Accout number: [id number] Admission Date: 09-29-2018 : 1960 Admission Diagnosis:SEPSIS, UNSPECIFIED ORGANISM Attending: SOPHIA HARRIS Current LOS: 14 Anticipated DC Date: Planned Disposition: Primary Insurance: [employer] [facility] [place] Planning Comments: PATIENT SIGNED FLORINA FORM FOR SNF OF [facility] IN [place]. CM WILL START THE REFERRAL PROCESS. Order Worker: Constanza Gauthier DCP- Discharge Planning Updated by [email or web address]: Constanza Gauthier on 10/11/18 4:[address] Patient Name: SAMIA HERNANDEZ Admission Status: ER Accout number: [id number] Admission Date: 09-29-2018 : 1960 Admission Diagnosis:SEPSIS, UNSPECIFIED ORGANISM Attending: SOPHIA HARRIS Current LOS: 12 Anticipated DC Date: Planned Disposition: Primary Insurance: [employer] [facility] Planning Comments: CM SPOKE WITH PATIENT THIS MORNING ABOUT DC PLANNING. HE WAS REFUSING PT AND SPOKE WITH HIM OF THE IMPORTANCE OF PT AND TO GET HIM PROPER PLACEMENT WHEN DC'D. HE WANTED ME TO WAIT AND TALK WHEN HIS IS HERE ALSO. ORIGINALLY INPT REHAB PLACEMENT WAS PUT IN BUT I LOOKED AT REHAB NOTE AND IT SAYS HIS INS WON'T AUTH IT. WILL TALK TO HIM AND HIS ABOUT SNF. IT IS LATE IN THE DAY WHEN I SEEN THE REHAB RESULTS, THEREFORE I WILL FOLLOW UP WITH THIS. CM WILL FOLLOW AND ASSIST NEEDED WITH DC PLANNING/NEEDS. Order Worker: Constanza Gauthier DCP- Discharge Planning Updated by [id number]: Constanza Gauthier on 10/01/18 8:[address] Patient Name: SAMIA HERNANDEZ Admission Status: ER Accout number: [id number] Admission Date: 09-29-2018 : 1960 Admission Diagnosis: Attending: SOPHIA HARRIS Current LOS: 2 Anticipated DC Date: Planned Disposition: Primary Insurance: [facility] Discharge Planning Comments: CM MET WITH PATIENT AND FAMILY ABOUT DC PLANNING/NEEDS. STATES IF THE DOCTOR IS TO SEND HIM HOME ON IV ANTIBIOTICS HE WILL NEED AN IFUSION COMPANY AND HH AGENCY. FLORINA SIGNED, PATIENT STATES ANY HH AND INFUSION SERVICE WILL BE FINE. CM WILL FOLLOW AND ASSIST NEEDED WITH DC PLANNING NEEDS. WILL SEND REFERRALS WHEN IT IS KNOWN IF HE NEEDS HOME IV ANTIBIOTICS. STATES IF HE DOESN'T THEN HE DOESN'T NEED HH. PCP IS JUANA. PHARMACY IS [facility]. CONTACT IS HUSAM AT [phone] Order Worker: Constanza Gauthier Coverage Notice Reviewer: [id number] - Constanza Gauthier Notice Issued Date-Time: 10/01/2018 9:46 Notice Type: Patient Choice Letter Notice Delivered To: Patient Relationship to Patient: Self Supervisor Photocomposition Name: Delivery Method: HAND - Hand Delivered Claudine Days: Prior Verbal Notification: Recipient Understood Notice: Yes Recipient Signature: Yes Med Rec Note Co-signed by Attending: Coverage Notice Comment: INFUSION COMPANY , ANY HH COMPANY, ANY PATIENT LIVES IN [place] Reviewer: [id number] Chuck Gauthier Notice Issued Date-Time: 10/13/2018 12:12 Notice Type: Patient Choice Letter Notice Delivered To: Family Member Relationship to Patient: Spouse Supervisor Photocomposition Name: HUSAM Delivery Method: - Claudine Days: Prior Verbal Notification: Recipient Understood Notice: Recipient Signature: Med Rec Note Co-signed by Attending: Coverage Notice Comment: Last DP export: 10/14/18 3:16 p Patient Name: SAMIA HERNANDEZ Page [phone] at 1625 All edits/amendments must be made on the electronic document DICTATION DATE: 10/14/18 1625 DATA ANALYSIS ASSISTANT: JUDITH 10/14/18 1625 RPT#: [id number] DC DATE: STATUS: ADM IN [facility] [address] [place] [address] END OF REPORT
[2018-10-14 17:42] VITALS: BP 117/80
--- NOTE | 2018-10-14 19:32 | NUR ---
OT NOTE: PT STATES PAIN HAS DECREASED. PT COMPLETED HYGIENE TASK WITH MOD A. PT COMPLETED GROOMING TASKS WITH SET UP. PT COMPLETED BUE AROM AXS. PT HAS SOME PAIN IN R SHOULDER FROM PITCHING. THANK YOU, MARGUERITE BUTTERFIELD
[2018-10-14 20:00] VITALS: BP 115/76
[2018-10-15] VITALS: BP 106/81; BP 108/69
[2018-10-15 04:00] VITALS: BP 113/72
[2018-10-15 05:25] LABS: BASOPHILS 0.6 % (0-2); EOSINOPHILS 1.3 % (0-7); HEMATOCRIT 34.4 % (42.0-54.0); HEMOGLOBIN 11.5 g/dL (13.5-17.5); IMMATURE GRANULOCYTES 0.5 % (0-5); LYMPHOCYTES 19.1 % (15-50); MCH 31.1 pg (26.0-34.0); MCHC 33.4 g/dL (31.0-37.0); MEAN PLATELET VOLUME 9.9 fL (7.4-10.4); MONOCYTES 10.1 % (2-11); NEUTROPHILS 68.4 % (40-80); PLATELET COUNT 460 10x3/uL (130-400); RDW 12.8 % (11.5-14.5); WBC 11.1 10x3/uL (4.8-10.8)
[2018-10-15 05:37] LABS: CALCIUM 8.9 mg/dL (8.5-10.1); CREATININE - SERUM 1.3 mg/dL (0.6-1.3)
--- NOTE | 2018-10-15 07:10 | NUR ---
INITIAL ROUNDING ON THE PATIENT, HE IS RESTING SUPINE WITH THE HOB UP APPROX 40 DEGREES, GUARD AT THE BEDSIDE, LEFT ANKLE HAND CUFFED TO THE BED. PATIENT REPORTS "PAIN IN THE BELLY AND ON THE SIDE"
[2018-10-15 08:00] VITALS: BP 121/74
--- NOTE | 2018-10-15 08:38 | NUR ---
CALLED DR HINES OFFICE AND SPOKE TO SHAINA, REQUESTING THE DOCTOR TO RETURN THE CALL
--- NOTE | 2018-10-15 08:44 | NUR ---
DR HINES RETURNED THE CALL AND NOTIFIED OF THE ELEVATED TEMP LAST NIGHT AT 1999 WITH NO MORE FEVERS DOCCUMENTED. NO NEW ORDERES RECVD
[2018-10-15 13:07] VITALS: BP 87/65
--- NOTE | 2018-10-15 16:18 | NUR ---
OT NOTE: PT PERFORMED WELL IN AM. AGREEABLE TO ATTEMPT TRANSFER TO CHAIR. BED MOB WITH MIN ASSIST FOR ROLLING AND SUPINE TO SIT; STATIC SITTING BALANCE WITHOUT ASSIST; PT ABLE TO LOWER FEET TO FLOOR WITHOUT ASSIST; EXS WITH MODERATE REST BREAKS; TRANSFER WITH USE OF RW AND MIN/MOD ASSIST X 2; ABLE TO TOLERATE SITTING UP IN CHAIR BUT EDUCATED PT TO SIT UP LONG POSSIBLE TO ASSIST WITH STRENGTH AND ENDURANCE. MAYRA REA, OTR/L
--- NOTE | 2018-10-15 17:09 | NUR ---
OT NOTE: PT COMPLETED BED MOB OF SIDE ROLLING WITH SPV. PT COMPLETED LUE AROM EXS. PT COMPLETED SIMPLE HYGIENE TASK WITH SET UP WITH LONG SITTING IN BED. THANK YOU, MARGUERITE BUTTERFIELD
[2018-10-15 17:13] VITALS: BP 108/92
[2018-10-15 20:00] VITALS: BP 103/74
[2018-10-16] VITALS (7 sets, daily range): BP systolic 104–132; BP diastolic 61–90
--- NOTE | 2018-10-16 07:05 | NUR ---
INITIAL ROUNDING ON THE PATIENT, HE IS AWAKE AND SUPINE IN BED WITH HOB APPROX 20 DEGREES. OFF LOADED BOTH HEELS AT THIS TIME USING PILLOWS, DRSG TO THE RIGHT HEEL CDI. SPOUSE AT THE BEDSIDE. PATIENT DENIES PAIN AT THIS TIME.
[2018-10-16 07:27] LABS: BASOPHILS 0.5 % (0-2); EOSINOPHILS 1.6 % (0-7); HEMATOCRIT 34.2 % (42.0-54.0); HEMOGLOBIN 11.6 g/dL (13.5-17.5); IMMATURE GRANULOCYTES 0.6 % (0-5); LYMPHOCYTES 22.9 % (15-50); MCH 31.4 pg (26.0-34.0); MCHC 33.9 g/dL (31.0-37.0); MCV 92.7 fL (80.0-100.0); MEAN PLATELET VOLUME 9.9 fL (7.4-10.4); MONOCYTES 9.3 % (2-11); NEUTROPHILS 65.1 % (40-80); PLATELET COUNT 437 10x3/uL (130-400); RBC 3.69 10x6/uL (4.20-6.10); RDW 12.9 % (11.5-14.5); WBC 11.4 10x3/uL (4.8-10.8)
[2018-10-16 07:49] LABS: ANION GAP 13.2 mmol/L (8-16); CALCIUM 8.9 mg/dL (8.5-10.1); CARBON DIOXIDE 28.7 mmol/L (21.0-32.0); CREATININE - SERUM 1.1 mg/dL (0.6-1.3)
[2018-10-16 07:51] LABS: POTASSIUM - SERUM 2.9 mmol/L (3.5-5.1)
--- NOTE | 2018-10-16 07:55 | NUR ---
MIHIR FROM THE LAB CALLED TO REPORT A LOW K+ LEVEL, WILL REPLACE PER PROTOCOL
--- NOTE | 2018-10-16 16:16 | MORECARE ---
CASE MANAGEMENT DISCHARGE SUMMARY PATIENT: SAMIA HERNANDEZ UNIT: [id number] ADM DATE: 09/29/18 AGE: 58 : 64 SEX: M ROOM/BED: D.1203 AUTHOR: MADELINE,DOC PHYSICIAN: REFERRING PHYSICIAN: SOPHIA HARRIS MD DATE OF SERVICE: 10/16/18 Discharge Plan Patient Name: SAMIA HERNANDEZ Facility: [facility]:[place] : 1960 Planned Disposition: Nursing Home Facility Anticipated Discharge Date: 10/15/18 Discharge Date: Expected LOS: 16 Initial Reviewer: [id number] Initial Review Date: 10/01/2018 Generated: 10/16/18 5:16 pm Comments DCP- Discharge Planning Updated by [email or web address]: Kathy Stephens on 10/16/18 3:[address] LATE ENTRY 1100 PRIMARY NURSE CALLED REGARDING PATIENT'S DISCHARGE TO [facility]. CM REVIEWED CM NOTES AND MD NOTES. THE PATIENT SPIKED A TEMP OF 101.1. AMAYA CULTURED. LABS ORDERED. NO DISCHARGE ORDERS. TC TO [facility] IN [place] AT [phone] THIS PM. NURSE REPORTS SHE WAS TOLD IN REPORT ,PATIENT WOULD NOT BE DISCHARGED TO [facility] DUE TO TEMP ELEVATION AND ADDITIONAL TESTING. CM TO FOLLOW TO ASSIST IS APPROPRIATE. CM SPOKE WITH PRIMARY NURSE. DCP- Discharge Planning Updated by [id number]: Constanza Gauthier on 10/14/18 3:[address] Patient Name: SAMIA HERNANDEZ Admission Status: ER Accout number: [id number] Admission Date: 09-29-2018 : 1960 Admission Diagnosis:SEPSIS, UNSPECIFIED ORGANISM Attending: SOPHIA HARRIS Current LOS: 15 Anticipated DC Date: Planned Disposition: Primary Insurance: [employer] Discharge Planning Comments: RECIEVED CALL FROM [facility] AND THEY HAVE ACCEPTED THE PATIENT. THEY ARE PLANNING TO GET HIM TOMORROW WHEN DISCHARGED. CM WILL FOLLOW AND ASSIST NEEDED WITH DC PLANNING/NEEDS. Phlebotomist Medical Lab Assistant: Constanza Gauthier DCP- Discharge Planning Updated by [id number]: Constanza Gauthier on 10/13/18 11:[address] Patient Name: SAMIA HERNANDEZ Admission Status: ER Accout number: [id number] Admission Date: 09-29-2018 : 1960 Admission Diagnosis:SEPSIS, UNSPECIFIED ORGANISM Attending: SOPHIA HARRIS Current LOS: 14 Anticipated DC Date: Planned Disposition: Primary Insurance: [employer] [facility] [place] Discharge Planning Comments: PATIENT SIGNED FLORINA FORM FOR SNF [facility] [place]. CM WILL START THE REFERRAL PROCESS. Phlebotomist Medical Lab Assistant: Constanza Gauthier DCP- Discharge Planning Updated by [id number]: Constanza Gauthier on 10/11/18 4:[address] Patient Name: SAMIA HERNANDEZ Admission Status: ER Accout number: [id number] Admission Date: 09-29-2018 : 1960 Admission Diagnosis:SEPSIS, UNSPECIFIED ORGANISM Attending: SOPHIA HARRIS Current LOS: 12 Anticipated DC Date: Planned Disposition: Primary Insurance: [facility] Discharge Planning Comments: CM SPOKE WITH PATIENT THIS MORNING ABOUT DC PLANNING. HE WAS REFUSING PT AND SPOKE WITH HIM OF THE IMPORTANCE OF PT AND TO GET HIM PROPER PLACEMENT WHEN DC'D. HE WANTED ME TO WAIT AND TALK WHEN HIS IS HERE ALSO. ORIGINALLY INPT REHAB PLACEMENT WAS PUT IN BUT I LOOKED AT REHAB NOTE AND IT SAYS HIS INS WON'T AUTH IT. WILL TALK TO HIM AND HIS ABOUT SNF. IT IS LATE IN THE DAY WHEN I SEEN THE REHAB RESULTS, THEREFORE I WILL FOLLOW UP WITH THIS. CM WILL FOLLOW AND ASSIST NEEDED WITH DC PLANNING/NEEDS. Phlebotomist Medical Lab Assistant: Constanza Gauthier DCP- Discharge Planning Updated by [id number]: Constanza Gauthier on 10/01/18 8:[address] Patient Name: SAMIA HERNANDEZ Admission Status: ER Accout number: [id number] Admission Date: 09-29-2018 : 1960 Admission Diagnosis: Attending: SOPHIA HARRIS Current LOS: 2 Anticipated DC Date: Planned Disposition: Primary Insurance: [facility] Discharge Planning Comments: CM MET WITH PATIENT AND FAMILY ABOUT DC PLANNING/NEEDS. STATES IF THE DOCTOR IS TO SEND HIM HOME ON IV ANTIBIOTICS HE WILL NEED AN IFUSION COMPANY AND HH AGENCY. FLORINA SIGNED, PATIENT STATES ANY HH AND INFUSION SERVICE WILL BE FINE. CM WILL FOLLOW AND ASSIST NEEDED WITH DC PLANNING NEEDS. WILL SEND REFERRALS WHEN IT IS KNOWN IF HE NEEDS HOME IV ANTIBIOTICS. STATES IF HE DOESN'T THEN HE DOESN'T NEED HH. PCP IS JUANA. PHARMACY IS [facility]. CONTACT IS HUSAM AT [phone] Phlebotomist Medical Lab Assistant: Constanza Gauthier Coverage Notice Reviewer: [id number] Chuck Gauthier Notice Issued Date-Time: 10/01/2018 9:46 Notice Type: Patient Choice Letter Notice Delivered To: Patient Relationship to Patient: Self Senior Product Development Manager Name: Delivery Method: HAND - Hand Delivered Claudine Days: Prior Verbal Notification: Recipient Understood Notice: Yes Recipient Signature: Yes Med Rec Note Co-signed by Attending: Coverage Notice Comment: INFUSION COMPANY , ANY HH COMPANY, ANY PATIENT LIVES IN [place] Reviewer: [id number] - Constanzadar Gauthier Notice Issued Date-Time: 10/13/2018 12:12 Notice Type: Patient Choice Letter Notice Delivered To: Family Member Relationship to Patient: Spouse Senior Product Development Manager Name: HUSAM Delivery Method: - Claudine Days: Prior Verbal Notification: Recipient Understood Notice: Recipient Signature: Med Rec Note Co-signed by Attending: Coverage Notice Comment: Last DP export: 10/14/18 3:25 p Patient Name: SAMIA HERNANDEZ Page [id number] at 1616 All edits/amendments must be made on the electronic document DICTATION DATE: 10/16/181614 CONTENT MANAGER: JUDITH 10/16/18 161 RPT#: [id number] DC DATE: STATUS: ADM IN [facility] [address] [place] [address] END OF REPORT
--- NOTE | 2018-10-16 19:15 | NUR ---
PATIENT RESTING IN BED WITH AT BEDSIDE. NO S/S OF DISTRESS. PATIENT DENIES NEEDS AT THIS TIME. BED IN LOWEST POSITION ANDC CALL LIGHT WITHIN REACH. ENCOURAGED THE PATIENT TO CALL IF SHE HAS NEEDS. WILL CONTINUE TO MONITOR.
--- NOTE | 2018-10-16 21:55 | NUR ---
NOTIFIED BY THE PATIENT'S THAT THE PATIENT WAS "ACTING FUNNY". WHEN I ENTERED THE ROOM I FOUND THE PATIENT IN BED WITH A CHANGE IN MENTAL STATUS. PATIENT WAS SLURRING HIS SPEECH AND USING WORDS INAPPROPRIATELY. WHEN I ASKED THE PATIENT HIS NAME, HE TOLD ME HIS LAST NAME AND HIS DATE OF TWICE, WHEN I ASKED HIS FIRST NAME. WHEN I ASKED THE PATIENT TO TELL ME WHERE HE WAS HE STATED "I AM HERE". THE PATIENT THEN STARTED TO FORM SENTENCES WITH RANDOM WORDS THAT DID NOT MAKE SENSE. CALLED A RAPID RESPONSE.
[2018-10-16 22:35] LABS: BASOPHILS 0.4 % (0-2); EOSINOPHILS 1.2 % (0-7); HEMATOCRIT 37.5 % (42.0-54.0); HEMOGLOBIN 12.8 g/dL (13.5-17.5); IMMATURE GRANULOCYTES 0.4 % (0-5); LYMPHOCYTES 25.5 % (15-50); MCH 31.4 pg (26.0-34.0); MCHC 34.1 g/dL (31.0-37.0); MCV 92.1 fL (80.0-100.0); MONOCYTES 8.2 % (2-11); NEUTROPHILS 64.3 % (40-80); PLATELET COUNT 385 10x3/uL (130-400); RBC 4.07 10x6/uL (4.20-6.10); RDW 12.7 % (11.5-14.5); WBC 11.5 10x3/uL (4.8-10.8)
[2018-10-16 22:38] LABS: ALBUMIN 2.4 g/dL (3.4-5.0); ANION GAP 15.4 mmol/L (8-16); BILIRUBIN - TOTAL 1.64 mg/dL (0.2-1.3); PROTEIN - SERUM 7.9 g/dL (6.4-8.2)
[2018-10-16 22:39] LABS: CREATININE - SERUM 1.4 mg/dL (0.6-1.3); POTASSIUM - SERUM 3.4 mmol/L (3.5-5.1)
--- NOTE | 2018-10-16 22:45 | NUR ---
PATIENT EMERGENTLY BROUGHT TO ICU FROM CT FOR WHAT APPEARED TO BE DECLINING HEMODYNAMIC STATUS SECONDARY TO TACHYPNEA. PATIENT PLACED IN ROOM 2304 AND CODE BLUE INIATED. ER STAFF/MD PRESENT. ER Rubin ELECTS NOT TO INTUBATE, BUT ADMINISTER MEDICATION FOR TACHYPNEA, IN LIEU OF.
--- NOTE | 2018-10-16 23:00 | NUR ---
MEDICATION ADMINISTERED, PER M.D. ORDER. WILL CONTINUE TO MONITOR
[2018-10-17] VITALS (23 sets, daily range): BP systolic 106–129; BP diastolic 71–90
--- NOTE | 2018-10-17 03:00 | NUR ---
RE-ASSESSMENT COMPLETE PER NURSING FLOWSHEET, PATIENT REPOSITIONED, CONTINUES TO BE CONFUSED, CONTINUING TO VISUALLY MONITOR
[2018-10-17 04:00] LABS: ANION GAP 8.2 mmol/L (8-16); CALCIUM 8.9 mg/dL (8.5-10.1); CARBON DIOXIDE 30.1 mmol/L (21.0-32.0); CREATININE - SERUM 1.3 mg/dL (0.6-1.3); POTASSIUM - SERUM 3.3 mmol/L (3.5-5.1)
[2018-10-17 04:09] LABS: BASOPHILS 0.3 % (0-2); EOSINOPHILS 1.2 % (0-7); IMMATURE GRANULOCYTES 0.5 % (0-5); LYMPHOCYTES 26.5 % (15-50); MCH 31.5 pg (26.0-34.0); MCHC 34.2 g/dL (31.0-37.0); MCV 92.3 fL (80.0-100.0); MEAN PLATELET VOLUME 10.5 fL (7.4-10.4); MONOCYTES 7.6 % (2-11); NEUTROPHILS 63.9 % (40-80); WBC 10.4 10x3/uL (4.8-10.8)
[2018-10-17 04:10] LABS: HEMOGLOBIN 17.1 g/dL (13.5-17.5); PLATELET COUNT 273 10x3/uL (130-400); RBC 5.42 10x6/uL (4.20-6.10)
--- NOTE | 2018-10-17 05:00 | NUR ---
AT BEDSIDE, PATIENT AWAKE, TALKING, LETHARGIC, BUT IS A&O X3
[2018-10-17 05:51] LABS: APPEARANCE CLEAR (CLEAR); BILIRUBIN NEGATIVE (NEGATIVE); COLOR YELLOW (YELLOW); GLUCOSE NEGATIVE (NEGATIVE); KETONE NEGATIVE (NEGATIVE); NITRITE NEGATIVE (NEGATIVE); PROTEIN NEGATIVE (NEGATIVE); UROBILINOGEN NORMAL (NORMAL)
--- NOTE | 2018-10-17 08:15 | NUR ---
UP IN BED RESTING AT THIS TIME. NO ACUTE DISTRESS NOTED. RESPIRATIONS STEADY AND UNLABORED. PT AWAKENS EASILY WHEN SPOKEN TO. BED ALARM ON, CALL LIGHT IN REACH. WILL CONTINUE PLAN OF CARE.
[2018-10-17 08:17] LABS: UDS - AMPHET NEGATIVE QUAL (NEGATIVE); UDS - BARB NEGATIVE QUAL (NEGATIVE); UDS - BENZO POSITIVE QUAL (NEGATIVE); UDS - COCAINE NEGATIVE QUAL (NEGATIVE); UDS - OPIATE POSITIVE QUAL (NEGATIVE); UDS - PCP NEGATIVE QUAL (NEGATIVE); UDS - THC NEGATIVE QUAL (NEGATIVE)
--- NOTE | 2018-10-17 09:16 | NUR ---
600ML VOID VIA URINAL NOTED AT THIS TIME.
--- NOTE | 2018-10-17 10:32 | NUR ---
PER DR HARRIS, DECREASE NEURONTIN DOSAGE FROM 600MG TO 300MG BID AND HOLD THIS AM DOSE.
--- NOTE | 2018-10-17 12:23 | NUR ---
FAMILY AT BEDSIDE AT THIS TIME. NO ACUTE DISTERSS NOTED. UPDATES PROVIDED. WILL CONTINUE PLAN OF CARE.
--- NOTE | 2018-10-17 14:24 | NUR ---
NO ACUTE DISTERSS NOTED. NO CHANGE. PT LYING IN BED RESTING WITH EYES CLOSED. RESPIRATIONS STEADY AND UNLABORED. AWAKENS WHEN SPOKEN TO. DENIES ANY NEEDS. WILL CONTINUE PLAN OF CARE.
--- NOTE | 2018-10-17 17:09 | NUR ---
PT TO HAVE MRI TOMORROW, HE STATES CONCERN BECAUSE HE IS CLAUSTROPHOBIC. DR NY NOTIFIED AND STATED OKAY TO GIVE 5 GEODON IM AND 2 ATIVAN IV 30 MIN BEFORE MRI A ONE TIME DOSE ONLY. ALSO NOTED SOME EDEMA TO RT ELBOW WITH SOME DISCOMFORT. PT HAS BP CUFF TO RT ARM, BP CUFF MOVED TO OTHER ARM. DR HARRIS NOTIFIED, NO NEW ORDERS. WILL CONTINUE PLAN OF CARE.
--- NOTE | 2018-10-17 19:00 | NUR ---
SHIFT REPORT RECEIVED. RECEIVED PATIENT LYING IN BED. AWAKE AND ALERT. ORIENTED X4. SPEECH CLEAR AND APPROPRIATE. MONITORS CONNECTED TO PATIENT WITH ALARMS SET. SR UP X 2. CALL LIGHT WITHIN REACH AND PT ABLE TO UTILIZE TO MAKE NEEDS KNOWN. VSS. NO DISTRESS OBSERVED.
--- NOTE | 2018-10-17 20:05 | NUR ---
FAMILY IN VISITING WITH PATIENT.
--- NOTE | 2018-10-17 21:00 | NUR ---
PATIENT AWAKE AND ALERT. ORIENTED X4. SPEECH CLEAR AND APPROPRIATE. AT BEDSIDE. UPDATE GIVEN. VSS. NO DISTRESS OBSERVED. CALL LIGHT IN REACH. SR UP X2.
--- NOTE | 2018-10-17 23:00 | NUR ---
AWAKE AND ALERT. RE ORIENTED TO TIME. ORIENTED TO PLACE, NAME AND SITUATION. SPEECH CLEAR AND APPROPRIATE. RE ASSESSMENT COMPLETED WITH NO CHANGES OBSERVED. NO DISTRESS OBSERVED. CALL LIGHT IN REACH. SR UP X 2
[2018-10-18] VITALS (23 sets, daily range): BP systolic 106–135; BP diastolic 71–92
--- NOTE | 2018-10-18 | NUR ---
MONITORS ALARMING, INTO PTS ROOM. PT HAD REMOVED ALL MONITORING EQUIPT INCLUDING ECG PADS. REPORTS BEING INCONT OF URINE. LINENS CHANGED, ASSISTED WITH BED BATH. CALL LIGHT IN REACH.
--- NOTE | 2018-10-18 00:15 | NUR ---
ABG REPEATED, NO ABG VALUES ARE IN A CRITICAL RANGE, PATIENT SLEEPING, IN NO APPARENT DISTRESS, VSS, WILL CONTINUE TO MONITOR
--- NOTE | 2018-10-18 01:00 | NUR ---
PATIENT REPOSITIONED, REMAINS ASLEEP, VSS
--- NOTE | 2018-10-18 01:00 | NUR ---
RESTING WITH EYES CLOSED, EASILY ROUSED AND ALERT. NO DISTRESS OBSERVED. VSS. SR UP X 2. CALL LIGHT IN REACH.
--- NOTE | 2018-10-18 03:00 | NUR ---
REASSESSMENT COMPLETED PER FLOW SHEET WITH NO CHANGES OBSERVED. VSS. CALL LIGHT IN REACH. SR UP X2
[2018-10-18 05:07] LABS: BASOPHILS 0.3 % (0-2); EOSINOPHILS 0.8 % (0-7); IMMATURE GRANULOCYTES 0.5 % (0-5); LYMPHOCYTES 13.8 % (15-50); MCH 31.1 pg (26.0-34.0); MCHC 33.6 g/dL (31.0-37.0); MCV 92.5 fL (80.0-100.0); MEAN PLATELET VOLUME 10.2 fL (7.4-10.4); MONOCYTES 6.7 % (2-11); NEUTROPHILS 77.9 % (40-80)
[2018-10-18 05:19] LABS: HEMATOCRIT 35.7 % (42.0-54.0); PLATELET COUNT 460 10x3/uL (130-400); RBC 3.86 10x6/uL (4.20-6.10); WBC 13.6 10x3/uL (4.8-10.8)
[2018-10-18 05:34] LABS: ANION GAP 12.7 mmol/L (8-16); CALCIUM 8.9 mg/dL (8.5-10.1); CARBON DIOXIDE 30.3 mmol/L (21.0-32.0); CREATININE - SERUM 1.2 mg/dL (0.6-1.3)
--- NOTE | 2018-10-18 07:30 | NUR ---
REPORT RECEIVED. ASSESSMENT COMPLETE PER FLOW SHEET. VSS. PT REMOVED PIV, 18 G IV INSERTED TO L WRIST ON 1 ATTEMPT WITHOUT DIFFICULTY. NEEDS MET WILL CONTINUE TO MONITOR
--- NOTE | 2018-10-18 08:52 | NUR ---
MRI CALLED BACK STATED MRI WOULD BE AFTER LUNCH.
--- NOTE | 2018-10-18 09:44 | NUR ---
Nutrition follow-up: Diet: Regular PO Intake ~40% average of last 6 meals Pt s/p rapid response 2/2 altered mental status; acidosis Pt much better today Labs reviewed scheduled for MRI today Wt: 205# RDN following.
--- NOTE | 2018-10-18 11:15 | NUR ---
PREOP MEDS ADM FOR MRI, NOT IN WAITING AREA AT THIS TIME WITH NO ANSWER ON PHONE.
--- NOTE | 2018-10-18 11:45 | NUR ---
PT TO MRI WITHOUT DIFFICULTY.
--- NOTE | 2018-10-18 12:18 | MORECARE ---
CASE MANAGEMENT DISCHARGE SUMMARY PATIENT: SAMIA HERNANDEZ UNIT: [id number] ADM DATE: 09/29/18 AGE: 58 : 64 SEX: M ROOM/BED: D.2304 AUTHOR: MADELINE,DOC PHYSICIAN: REFERRING PHYSICIAN: SOPHIA HARRIS MD DATE OF SERVICE: 10/18/18 Discharge Plan Patient Name: SAMIA HERNANDEZ Facility: [facility]:[place] : 1960 Planned Disposition: [facility] Facility Anticipated Discharge Date: 10/15/18 Discharge Date: Expected LOS: 16 Initial Reviewer: [id number] Initial Review Date: 10/01/2018 Generated: 10/18/18 1:17 pm Comments DCP- Discharge Planning Updated by [id number]: Kathy Stephens on 10/18/18 11:[address] CM RECEIVED TELEPHONE CALL FROM ANDRIA AT [facility] 1031. SHE REQUESTED AN UPDATE . CM REVIEWED PT'S STATUS WITH TRANSFER TO ICU. 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 PROVIDED CONTACT INFORMATION FOR PRANAY. [facility] [phone] FAX [phone]. DCP- Discharge Planning Updated by [email or web address]: Kathy Stephens on 10/16/18 3:[address] LATE ENTRY 1100 PRIMARY NURSE CALLED REGARDING PATIENT'S DISCHARGE TO [facility]. CM REVIEWED CM NOTES AND MD NOTES. THE PATIENT SPIKED A TEMP OF 101.1. AMAYA CULTURED. LABS ORDERED. NO DISCHARGE ORDERS. TC TO [facility] IN [place] AT [phone] THIS PM. NURSE REPORTS SHE WAS TOLD IN REPORT ,PATIENT WOULD NOT BE DISCHARGED TO [facility] DUE TO TEMP ELEVATION AND ADDITIONAL TESTING. CM TO FOLLOW TO ASSIST IS APPROPRIATE. CM SPOKE WITH PRIMARY NURSE. DCP- Discharge Planning Updated by [id number]: Constanza Gauthier on 10/14/18 3:[address] Patient Name: SAMIA HERNANDEZ Admission Status: ER Accout number: [id number] Admission Date: 09-29-2018 : 1960 Admission Diagnosis:SEPSIS, UNSPECIFIED ORGANISM Attending: SOPHIA HARRIS Current LOS: 15 Anticipated DC Date: Planned Disposition: Primary [place] [employer] [facility] Planning Comments: RECIEVED CALL FROM [facility] AND THEY HAVE ACCEPTED THE PATIENT. THEY ARE PLANNING TO GET HIM TOMORROW WHEN DISCHARGED. CM WILL FOLLOW AND ASSIST NEEDED WITH DC PLANNING/NEEDS. Associate Software Development Engineer: Constanza Gauthier DCP- Discharge Planning Updated by [id number]: Constanza Disha on 10/13/18 11:[address] Patient Name: SAMIA HERNANDEZ Admission Status: ER Accout number: [id number] Admission Date: 09-29-2018 : 1960 Admission Diagnosis:SEPSIS, UNSPECIFIED ORGANISM Attending: SOPHIA HARRIS Current LOS: 14 Anticipated DC Date: Planned Disposition: Primary [place] [employer] [facility] [place] Planning Comments: PATIENT SIGNED FLORINA FORM FOR SNF OF [facility] IN [place]. CM WILL START THE REFERRAL PROCESS. Associate Software Development Engineer: Constanza Gauthier DCP- Discharge Planning Updated by [id number]: Constanza Disha on 10/11/18 4:[address] Patient Name: SAMIA HERNANDEZ Admission Status: ER Accout number: [id number] Admission Date: 09-29-2018 : 1960 Admission Diagnosis:SEPSIS, UNSPECIFIED ORGANISM Attending: SOPHIA HARRIS Current LOS: 12 Anticipated DC Date: Planned Disposition: Primary [place] [employer] [facility] [place]charge Planning Comments: CM SPOKE WITH PATIENT THIS MORNING ABOUT DC PLANNING. HE WAS REFUSING PT AND SPOKE WITH HIM OF THE IMPORTANCE OF PT AND TO GET HIM PROPER PLACEMENT WHEN DC'D. HE WANTED ME TO WAIT AND TALK WHEN HIS IS HERE ALSO. ORIGINALLY IN REHAB PLACEMENT WAS PUT IN BUT I LOOKED AT REHAB NOTE AND IT SAYS HIS INS WON'T AUTH IT. WILL TALK TO HIM AND HIS ABOUT SNF. IT IS LATE IN THE DAY WHEN I SEEN THE REHAB RESULTS, THEREFORE I WILL FOLLOW UP WITH THIS. CM WILL FOLLOW AND ASSIST NEEDED WITH DC PLANNING/NEEDS. Associate Software Development Engineer: Constanza Gauthier DCP- Discharge Planning Updated by [id number]: Constanza Gauthier on 10/01/18 8:[address] Patient Name: SAMIA HERNANDEZ Admission Status: ER Accout number: [id number] Admission Date: 09-29-2018 : 1960 Admission Diagnosis: Attending: SOPHIA HARRIS Current LOS: 2 Anticipated DC Date: Planned Disposition: Primary Insurance: [employer] O Discharge Planning Comments: CM MET WITH PATIENT AND FAMILY ABOUT DC PLANNING/NEEDS. STATES IF THE DOCTOR IS TO SEND HIM HOME ON IV ANTIBIOTICS HE WILL NEED AN IFUSION COMPANY AND HH AGENCY. FLORINA SIGNED, PATIENT STATES ANY HH AND INFUSION SERVICE WILL BE FINE. CM WILL FOLLOW AND ASSIST NEEDED WITH DC PLANNING NEEDS. WILL SEND REFERRALS WHEN IT IS KNOWN IF HE NEEDS HOME IV ANTIBIOTICS. STATES IF HE DOESN'T THEN HE DOESN'T NEED HH. PCP IS JUANA. PHARMACY IS [facility]. CONTACT IS HUSAM AT [phone] Associate Software Development Engineer: Constanza Gauthier Coverage Notice Reviewer: [id number] - Constanza Gauthier Notice Issued Date-Time: 10/01/2018 9:46 Notice Type: Patient Choice Letter Notice Delivered To: Patient Relationship to Patient: Self Filling Separator Name: Delivery Method: HAND - Hand Delivered Claudine Days: Prior Verbal Notification: Recipient Understood Notice: Yes Recipient Signature: Yes Med Rec Note Co-signed by Attending: Coverage Notice Comment: INFUSION COMPANY , ANY HH COMPANY, ANY PATIENT LIVES IN [place] Reviewer: [id number] - Constanza Gauthier Notice Issued Date-Time: 10/13/2018 12:12 Notice Type: Patient Choice Letter Notice Delivered To: Family Member Relationship to Patient: Spouse Filling Separator Name: HUSAM Delivery Method: - Claudine Days: Prior Verbal Notification: Recipient Understood Notice: Recipient Signature: Med Rec Note Co-signed by Attending: Coverage Notice Comment: Last DP export: 10/16/18 3:16 pm Patient Name: SAMIA HERNANDEZ Page [id number] at 1218 All edits/amendments must be made on the electronic document DICTATION DATE: 10/18/18 1217 RECYCLE COORDINATOR: JUDITH 10/18/18 1217 RPT#: [id number] DC DATE: STATUS: ADM IN [place] [address] [place] [address] END OF REPORT
--- NOTE | 2018-10-18 12:20 | NUR ---
PT BACK FROM MRI, AT BEDSIDE GIVEN UPDATE.
--- NOTE | 2018-10-18 13:31 | NUR ---
OT NOTE: WILL REQUIRE NEW ORDERS TO TX PT SECONDARY TO TRANSFER TO ICU MAYRA REA, OTR/L
--- NOTE | 2018-10-18 13:40 | NUR ---
TRANSFER CENTER CALLED GIVE UPDATE STATED WAS ON A WAITING LIST AT [facility] [place]. NOT IN WAITING AREA WILL GIVE UPDATE NEXT VISITATION.
--- NOTE | 2018-10-18 14:00 | NUR ---
UPDATE GIVEN TO DR. DIAZ, NEW ORDERS RECIEVED,
--- NOTE | 2018-10-18 14:31 | MORECARE ---
CASE MANAGEMENT DISCHARGE SUMMARY PATIENT: SAMIA HERNANDEZ UNIT: [id number] ADM DATE: 09/29/18 AGE: 58 : 64 SEX: M ROOM/BED: D.2304 AUTHOR: MADELINE,DOC PHYSICIAN: REFERRING PHYSICIAN: SOPHIA HARRIS MD DATE OF SERVICE: 10/18/18 Discharge Plan Patient Name: SAMIA HERNANDEZ Facility: [facility]:[place] : 1960 Planned Disposition: Residential Facility Anticipated Discharge Date: 10/15/18 Discharge Date: Expected LOS: 16 Initial Reviewer: [id number] Initial Review Date: 10/01/2018 Generated: 10/18/18 3:30 pm Comments DCP- Discharge Planning Updated by [email or web address]: Joselyn Davenport on 10/18/18 1:[address] CM received call from Jeimy De Jesus, manager medicare, stating patient's family is requesting transfer to [facility]. Nurse Jha stated she spoke with Dr. Peña and he agreed patient needed to transfer for Neuro consult d/t possible infarct. CM called and received approval for transfer from admin operations vocational instructor, Jagruti Grubbs. CM called and notified pump house engineer, Luma, about CM initiating transfer. CM called [facility] about transfer. Spoke with Jhon. Gave verbal report of patient's status and reason for transfer. Jhon is checking on bed availability and will call CM back. CM will continue to follow and assist as needed with transfer. DCP- Discharge Planning Updated by [id number]: Kathy Stephens on 10/18/18 11:[address] CM RECEIVED TELEPHONE CALL FROM ANDRIA AT [facility] 1031. SHE REQUESTED AN UPDATE . CM REVIEWED PT'S STATUS WITH TRANSFER TO ICU. 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 PROVIDED CONTACT INFORMATION FOR PRANAY. [facility] [phone] FAX [phone]. DCP- Discharge Planning Updated by [id number]: Kathy Stephens on 10/16/18 3:[address] LATE ENTRY 1100 PRIMARY NURSE CALLED REGARDING PATIENT'S DISCHARGE TO [facility]. CM REVIEWED CM NOTES AND MD NOTES. THE PATIENT SPIKED A TEMP OF 101.1. AMAYA CULTURED. LABS ORDERED. NO DISCHARGE ORDERS. TC TO [facility] IN [place] AT [phone] THIS PM. NURSE REPORTS SHE WAS TOLD IN REPORT ,PATIENT WOULD NOT BE DISCHARGED TO [facility] DUE TO TEMP ELEVATION AND ADDITIONAL TESTING. CM TO FOLLOW TO ASSIST IS APPROPRIATE. CM SPOKE WITH PRIMARY NURSE. DCP- Discharge Planning Updated by [id number]: Constanza Disha on 10/14/18 3:[address] Patient Name: SAMIA HERNANDEZ Admission Status: ER Accout number: [id number] Admission Date: 09-29-2018 : 1960 Admission Diagnosis:SEPSIS, UNSPECIFIED ORGANISM Attending: SOPHIA HARRIS Current LOS: 15 Anticipated DC Date: Planned Disposition: Primary Insurance: [employer] [facility] Discharge Planning Comments: RECIEVED CALL FROM [facility] AND THEY HAVE ACCEPTED THE PATIENT. THEY ARE PLANNING TO GET HIM TOMORROW WHEN DISCHARGED. CM WILL FOLLOW AND ASSIST NEEDED WITH DC PLANNING/NEEDS. Vice Chancellor: Constanza Gauthier DCP- Discharge Planning Updated by [id number]: Constanza Gauthier on 10/13/18 11:[address] Patient Name: SAMIA HERNANDEZ Admission Status: ER Accout number: [id number] Admission Date: 09-29-2018 : 1960 Admission Diagnosis:SEPSIS, UNSPECIFIED ORGANISM Attending: SOPHIA HARRIS Current LOS: 14 Anticipated DC Date: Planned Disposition: Primary Insurance: [employer] [facility] Discharge Planning Comments: PATIENT SIGNED FLORINA FORM FOR SNF OF [facility] IN [place]. CM WILL START THE REFERRAL PROCESS. Vice Chancellor: Constanza Gauthier DCP- Discharge Planning Updated by [id number]: Constanza Gauthier on 10/11/18 4:[address] Patient Name: SAMIA HERNANDEZ Admission Status: ER Accout number: [id number] Admission Date: 09-29-2018 : 1960 Admission Diagnosis:SEPSIS, UNSPECIFIED ORGANISM Attending: SOPHIA HARRIS Current LOS: 12 Anticipated DC Date: Planned Disposition: Primary Insurance: [employer] [facility] Discharge Planning Comments: CM SPOKE WITH PATIENT THIS MORNING ABOUT DC PLANNING. HE WAS REFUSING PT AND SPOKE WITH HIM OF THE IMPORTANCE OF PT AND TO GET HIM PROPER PLACEMENT WHEN DC'D. HE WANTED ME TO WAIT AND TALK WHEN HIS IS HERE ALSO. ORIGINALLY INPT REHAB PLACEMENT WAS PUT IN BUT I LOOKED AT REHAB NOTE AND IT SAYS HIS INS WON'T AUTH IT. WILL TALK TO HIM AND HIS ABOUT SNF. IT IS LATE IN THE DAY WHEN I SEEN THE REHAB RESULTS, THEREFORE I WILL FOLLOW UP WITH THIS. CM WILL FOLLOW AND ASSIST NEEDED WITH DC PLANNING/NEEDS. Vice Chancellor: Constanza Gauthier DCP- Discharge Planning Updated by [id number]: Constanza Gauthier on 10/01/18 8:[address] Patient Name: SAMIA HERNANDEZ Admission Status: ER Accout number: [id number] Admission Date: 09-29-2018 : 1960 Admission Diagnosis: Attending: SOPHIA HARRIS Current LOS: 2 Anticipated DC Date: Planned Disposition: Primary Insurance: [employer] Discharge Planning Comments: CM MET WITH PATIENT AND FAMILY ABOUT DC PLANNING/NEEDS. STATES IF THE DOCTOR IS TO SEND HIM HOME ON IV ANTIBIOTICS HE WILL NEED AN IFUSION COMPANY AND HH AGENCY. FLORINA SIGNED, PATIENT STATES ANY HH AND INFUSION SERVICE WILL BE FINE. CM WILL FOLLOW AND ASSIST NEEDED WITH DC PLANNING NEEDS. WILL SEND REFERRALS WHEN IT IS KNOWN IF HE NEEDS HOME IV ANTIBIOTICS. STATES IF HE DOESN'T THEN HE DOESN'T NEED HH. PCP IS JUANA. PH[facility]ACY IS [facility]. CONTACT IS HUSAM AT [phone] Vice Chancellor: Constanza Gauthier Coverage Notice Reviewer: [id number] Chuck Gauthier Notice Issued Date-Time: 10/01/2018 9:46 Notice Type: Patient Choice Letter Notice Delivered To: Patient Relationship to Patient: Self Last Model Department Supervisor Name: Delivery Method: HAND - Hand Delivered Claudine Days: Prior Verbal Notification: Recipient Understood Notice: Yes Recipient Signature: Yes Med Rec Note Co-signed by Attending: Coverage Notice Comment: INFUSION COMPANY , ANY HH COMPANY, ANY PATIENT LIVES IN [place] Reviewer: [id number] - Constanza Gauthier Notice Issued Date-Time: 10/13/2018 12:12 Notice Type: Patient Choice Letter Notice Delivered To: Family Member Relationship to Patient: Spouse Last Model Department Supervisor Name: HUSAM Delivery Method: - Claudine Days: Prior Verbal Notification: Recipient Understood Notice: Recipient Signature: Med Rec Note Co-signed by Attending: Coverage Notice Comment: Last DP export: 10/18/18 11:18 am Patient Name: SAMIA HERNANDEZ Page 08451 at 1431 All edits/amendments must be made on the electronic document DICTATION DATE: 10/18/181429 LINE CLEANER: JUDITH 10/18/181429 RPT#: [id number] DC DATE: STATUS: ADM IN [facility] [address] [place] [address] END OF REPORT
--- NOTE | 2018-10-18 14:48 | MORECARE ---
CASE MANAGEMENT DISCHARGE SUMMARY PATIENT: SAMIA HERNANDEZ UNIT: [id number] ADM DATE: 09/29/18 AGE: 58 : 64 SEX: M ROOM/BED: D.2304 AUTHOR: MADELINE,DOC PHYSICIAN: REFERRING PHYSICIAN: SOPHIA HARRIS MD DATE OF SERVICE: 10/18/18 Discharge Plan Patient Name: SAMIA HERNANDEZ Facility: [facility]:[place] : 1960 Planned Disposition: Detention Facility Anticipated Discharge Date: 10/15/18 Discharge Date: Expected LOS: 16 Initial Reviewer: [id number] Initial Review Date: 10/01/2018 Generated: 10/18/18 3:48 pm Comments DCP- Discharge Planning Updated by [id number]: Joselyn Davenport on 10/18/18 1:[address] CM received call from Jeimy De Jesus, manager environmental, stating patient's family is requesting transfer to [facility]. Nurse Jha stated she spoke with Dr. Peña and he agreed patient needed to transfer for Neuro consult d/t possible infarct. CM called and received approval for transfer from admin road commissioner, Jagruti Grubbs. CM called and notified residential housekeeper, Luma, about CM initiating transfer. CM called [facility] about transfer. Spoke with Jhon. Gave verbal report of patient's status and reason for transfer. Jhon is checking on bed availability and will call CM back. CM will continue to follow and assist as needed with transfer. DCP- Discharge Planning Updated by [id number]: Kathy Stephens on 10/18/18 11:[address] CM RECEIVED TELEPHONE CALL FROM ANDRIA AT [facility] 1031. SHE REQUESTED AN UPDATE . CM REVIEWED PT'S STATUS WITH TRANSFER TO ICU. 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 PROVIDED CONTACT INFORMATION FOR PRANAY. [facility] [phone] FAX [phone]. DCP- Discharge Planning Updated by [email or web address]: Kathy Stephens on 10/16/18 3:[address] LATE ENTRY 1100 PRIMARY NURSE CALLED REGARDING PATIENT'S DISCHARGE TO [facility]. CM REVIEWED CM NOTES AND MD NOTES. THE PATIENT SPIKED A TEMP OF 101.1. AMAYA CULTURED. LABS ORDERED. NO DISCHARGE ORDERS. TC TO [facility] IN [place] AT [phone] THIS PM. NURSE REPORTS SHE WAS TOLD IN REPORT ,PATIENT WOULD NOT BE DISCHARGED TO [facility] DUE TO TEMP ELEVATION AND ADDITIONAL TESTING. CM TO FOLLOW TO ASSIST IS APPROPRIATE. CM SPOKE WITH PRIMARY NURSE. DCP- Discharge Planning Updated by [email or web address]: Constanza Disha on 10/14/18 3:[address] Patient Name: SAMIA HERNANDEZ Admission Status: ER Accout number: [id number] Admission Date: 09-29-2018 : 1960 Admission Diagnosis:SEPSIS, UNSPECIFIED ORGANISM Attending: SOPHIA HARRIS Current LOS: 15 Anticipated DC Date: Planned Disposition: Primary Insurance: [employer] [facility] Discharge Planning Comments: RECIEVED CALL FROM [facility] AND THEY HAVE ACCEPTED THE PATIENT. THEY ARE PLANNING TO GET HIM TOMORROW WHEN DISCHARGED. CM WILL FOLLOW AND ASSIST NEEDED WITH DC PLANNING/NEEDS. Colors Custodian: Constanza Gauthier DCP- Discharge Planning Updated by [email or web address]: Constanza Gauthier on 10/13/18 11:[address] Patient Name: SAMIA HERNANDEZ Admission Status: ER Accout number: [id number] Admission Date: 09-29-2018 : 1960 Admission Diagnosis:SEPSIS, UNSPECIFIED ORGANISM Attending: SOPHIA HARRIS Current LOS: 14 Anticipated DC Date: Planned Disposition: Primary Insurance: [employer] [facility] Discharge Planning Comments: PATIENT SIGNED FLORINA FORM FOR SNF OF [facility] IN [place]. CM WILL START THE REFERRAL PROCESS. Colors Custodian: Constanza Gauthier DCP- Discharge Planning Updated by [email or web address]: Constanza Gauthier on 10/11/18 4:[address] Patient Name: SAMIA HERNANDEZ Admission Status: ER Accout number: [id number] Admission Date: 09-29-2018 : 1960 Admission Diagnosis:SEPSIS, UNSPECIFIED ORGANISM Attending: SOPHIA HARRIS Current LOS: 12 Anticipated DC Date: Planned Disposition: Primary Insurance: [employer] [facility] Discharge Planning Comments: CM SPOKE WITH PATIENT THIS MORNING ABOUT DC PLANNING. HE WAS REFUSING PT AND SPOKE WITH HIM OF THE IMPORTANCE OF PT AND TO GET HIM PROPER PLACEMENT WHEN DC'D. HE WANTED ME TO WAIT AND TALK WHEN HIS IS HERE ALSO. ORIGINALLY INPT REHAB PLACEMENT WAS PUT IN BUT I LOOKED AT REHAB NOTE AND IT SAYS HIS INS WON'T AUTH IT. WILL TALK TO HIM AND HIS ABOUT SNF. IT IS LATE IN THE DAY WHEN I SEEN THE REHAB RESULTS, THEREFORE I WILL FOLLOW UP WITH THIS. CM WILL FOLLOW AND ASSIST NEEDED WITH DC PLANNING/NEEDS. Colors Custodian: Constanza Gauthier DCP- Discharge Planning Updated by [id number]: Constanza Disha on 10/01/18 8:[address] Patient Name: SAMIA HERNANDEZ Admission Status: ER Accout number: [id number] Admission Date: 09-29-2018 : 1960 Admission Diagnosis: Attending: SOPHIA HARRIS Current LOS: 2 Anticipated DC Date: Planned Disposition: Primary Insurance: [employer] [facility] Discharge Planning Comments: CM MET WITH PATIENT AND FAMILY ABOUT DC PLANNING/NEEDS. STATES IF THE DOCTOR IS TO SEND HIM HOME ON IV ANTIBIOTICS HE WILL NEED AN IFUSION COMPANY AND HH AGENCY. FLORINA SIGNED, PATIENT STATES ANY HH AND INFUSION SERVICE WILL BE FINE. CM WILL FOLLOW AND ASSIST NEEDED WITH DC PLANNING NEEDS. WILL SEND REFERRALS WHEN IT IS KNOWN IF HE NEEDS HOME IV ANTIBIOTICS. STATES IF HE DOESN'T THEN HE DOESN'T NEED HH. PCP IS JUANA. PH[facility]ACY IS [facility]. CONTACT IS HUSAM AT [phone] Colors Custodian: Constanza Gauthier External Providers External Provider: [facility] Next Contact Date: Service Request Date: Service Type: Resolution: Reviewer: Comments: Coverage Notice Reviewer: [id number] Chuck Gauthier Notice Issued Date-Time: 10/01/2018 9:46 Notice Type: Patient Choice Letter Notice Delivered To: Patient Relationship to Patient: Self Paint Stripper Name: Delivery Method: HAND - Hand Delivered Claudine Days: Prior Verbal Notification: Recipient Understood Notice: Yes Recipient Signature: Yes Med Rec Note Co-signed by Attending: Coverage Notice Comment: INFUSION COMPANY , ANY HH COMPANY, ANY PATIENT LIVES IN [place] Reviewer: [id number] Chuck Gauthier Notice Issued Date-Time: 10/13/2018 12:12 Notice Type: Patient Choice Letter Notice Delivered To: Family Member Relationship to Patient: Spouse Paint Stripper Name: HUSAM Delivery Method: - Claudine Days: Prior Verbal Notification: Recipient Understood Notice: Recipient Signature: Med Rec Note Co-signed by Attending: Coverage Notice Comment: Last DP export: 10/18/18 1:30 pm Patient Name: SAMIA HERNANDEZ Page [id number] at 1448 All edits/amendments must be made on the electronic document DICTATION DATE: 10/18/181446 SPECK DYER: JUDITH 10/18/181446 RPT#: [id number] DC DATE: STATUS: ADM IN [facility] [address] [place] [address] END OF REPORT
--- NOTE | 2018-10-18 14:57 | MORECARE ---
CASE MANAGEMENT DISCHARGE SUMMARY PATIENT: SAMIA HERNANDEZ UNIT: [id number] ADM DATE: 09/29/18 AGE: 58 : [birth year] SEX: M ROOM/BED: D.2304 AUTHOR: MADELINE,DOC PHYSICIAN: REFERRING PHYSICIAN: SOPHIA HARRIS MD DATE OF SERVICE: 10/18/18 Discharge Plan Patient Name: SAMIA HERNANDEZ Facility: [facility]:[place] : 1960 Planned Disposition: Retirement Facility Anticipated Discharge Date: 10/15/18 Discharge Date: Expected LOS: 16 Initial Reviewer: [email or web address] Initial Review Date: 10/01/2018 Generated: 10/18/18 3:57 pm Comments DCP- Discharge Planning Updated by [id number]: Joselyn Davenport on 10/18/18 1:[address] CM received call back from Jhon at [facility]. Jhon informed CM that they do not have an ICU bed available at this time, but she is giving all contact info to their mine shifter and will call us back when a bed is available. Jhon requested we call them if patient is places elsewhere. CM called and notified Jeimy De Jesus, client manager, of status of transfer. Jeimy stated family choice [facility] and [facility] as second and third choices. CM contacted transfer center. Gave report to Taj and faxed face sheet as requested. Taj will contact [facility] and [facility] [place] for transfer request. CM will continue to assist as needed with transfer request. DCP- Discharge Planning Updated by [id number]: Joselyn Davenport on 10/18/18 1:[address] CM received call from Jeimy De Jesus, client manager, stating patient's family is requesting transfer to [facility]. Nurse Yudelka stated she spoke with Dr. Peña and he agreed patient needed to transfer for Neuro consult d/t possible infarct. CM called and received approval for transfer from admin well control instructor, Jagruti Grubbs. CM called and notified medical housekeeper, Luma, about CM initiating transfer. CM called [facility] about transfer. Spoke with Jhon. Gave verbal report of patient's status and reason for transfer. Jhon is checking on bed availability and will call CM back. CM will continue to follow and assist as needed with transfer. DCP- Discharge Planning Updated by [id number]: Kathy Stephens on 10/18/18 11:[address] CM RECEIVED TELEPHONE CALL FROM ANDRIA AT [facility] 1031. SHE REQUESTED AN UPDATE . CM REVIEWED PT'S STATUS WITH TRANSFER TO ICU. FAXED CLINICAL UPDATE AND ADVISED ANDRIA THAT [facility] SORENSON IS ICU REAR ADMIRAL. PROVIDED CONTACT INFORMATION FOR PRANAY. [facility] [phone] FAX [phone]. DCP- Discharge Planning Updated by [id number]: Kathy Stephens on 10/16/18 3:[address] LATE ENTRY 1100 PRIMARY NURSE CALLED REGARDING PATIENT'S DISCHARGE TO [facility]. CM REVIEWED CM NOTES AND MD NOTES. THE PATIENT SPIKED A TEMP OF 101.1. AMAYA CULTURED. LABS ORDERED. NO DISCHARGE ORDERS. TC TO [facility] IN [place] AT [phone] THIS PM. NURSE REPORTS SHE WAS TOLD IN REPORT ,PATIENT WOULD NOT BE DISCHARGED TO [facility] DUE TO TEMP ELEVATION AND ADDITIONAL TESTING. CM TO FOLLOW TO ASSIST IS APPROPRIATE. CM SPOKE WITH PRIMARY NURSE. DCP- Discharge Planning Updated by [id number]: Constanza Gauthier on 10/14/18 3:[address] Patient Name: SAMIA HERNANDEZ Admission Status: ER Accout number: [id number] Admission Date: 09-29-2018 : 1960 Admission Diagnosis:SEPSIS, UNSPECIFIED ORGANISM Attending: SOPHIA HARRIS Current LOS: 15 Anticipated DC Date: Planned Disposition: Primary Insurance: [employer] [facility] Discharge Planning Comments: RECIEVED CALL FROM [facility] AND THEY HAVE ACCEPTED THE PATIENT. THEY ARE PLANNING TO GET HIM TOMORROW WHEN DISCHARGED. CM WILL FOLLOW AND ASSIST NEEDED WITH DC PLANNING/NEEDS. Campus Wellness Coordinator: Constanza Gauthier DCP- Discharge Planning Updated by [id number]: Constanza Gauthier on 10/13/18 11:[address] Patient Name: SAMIA HERNANDEZ Admission Status: ER Accout number: [id number] Admission Date: 09-29-2018 : 1960 Admission Diagnosis:SEPSIS, UNSPECIFIED ORGANISM Attending: SOPHIA HARRIS Current LOS: 14 Anticipated DC Date: Planned Disposition: Primary Insurance: [employer] Discharge Planning Comments: PATIENT SIGNED FLORINA FORM FOR [facility] IN [place]. CM WILL START THE REFERRAL PROCESS. Campus Wellness Coordinator: Constanza Disha DCP- Discharge Planning Updated by [id number]: Constanza Gauthier on 10/11/18 4:[address] Patient Name: SAMIA HERNANDEZ Admission Status: ER Accout number: [id number] Admission Date: 09-29-2018 : 1960 Admission Diagnosis:SEPSIS, UNSPECIFIED ORGANISM Attending: SOPHIA HARRIS Current LOS: 12 Anticipated DC Date: Planned Disposition: Primary Insurance: [employer] Discharge Planning Comments: CM SPOKE WITH PATIENT THIS MORNING ABOUT DC PLANNING. HE WAS REFUSING PT AND SPOKE WITH HIM OF THE IMPORTANCE OF PT AND TO GET HIM PROPER PLACEMENT WHEN DC'D. HE WANTED ME TO WAIT AND TALK WHEN HIS IS HERE ALSO. ORIGINALLY IN REHAB PLACEMENT WAS PUT IN BUT I LOOKED AT REHAB NOTE AND IT SAYS HIS INS WON'T AUTH IT. WILL TALK TO HIM AND HIS ABOUT SNF. IT IS LATE IN THE DAY WHEN I SEEN THE REHAB RESULTS, THEREFORE I WILL FOLLOW UP WITH THIS. CM WILL FOLLOW AND ASSIST NEEDED WITH DC PLANNING/NEEDS. Campus Wellness Coordinator: Constanza Disha DCP- Discharge Planning Updated by [id number]: Constanza Disha on 10/01/18 8:[address] Patient Name: SAMIA HERNANDEZ Admission Status: ER Accout number: [id number] Admission Date: 09-29-2018 : 1960 Admission Diagnosis: Attending: SOPHIA HARRIS Current LOS: 2 Anticipated DC Date: Planned Disposition: Primary Insurance: [employer] Discharge Planning Comments: CM MET WITH PATIENT AND FAMILY ABOUT DC PLANNING/NEEDS. STATES IF THE DOCTOR IS TO SEND HIM HOME ON IV ANTIBIOTICS HE WILL NEED AN IFUSION COMPANY AND HH AGENCY. FLORINA SIGNED, PATIENT STATES ANY HH AND INFUSION SERVICE WILL BE FINE. CM WILL FOLLOW AND ASSIST NEEDED WITH DC PLANNING NEEDS. WILL SEND REFERRALS WHEN IT IS KNOWN IF HE NEEDS HOME IV ANTIBIOTICS. STATES IF HE DOESN'T THEN HE DOESN'T NEED HH. PCP IS JUANA. PHARMACY IS [facility]. CONTACT IS HUSAM AT [phone] Campus Wellness Coordinator: Constanza Gauthier Coverage Notice Reviewer: [id number] - Constanza Gauthier Notice Issued Date-Time: 10/01/2018 9:46 Notice Type: Patient Choice Letter Notice Delivered To: Patient Relationship to Patient: Self Department Assistant Name: Delivery Method: HAND - Hand Delivered Claudine Days: Prior Verbal Notification: Recipient Understood Notice: Yes Recipient Signature: Yes Med Rec Note Co-signed by Attending: Coverage Notice Comment: INFUSION COMPANY , ANY HH COMPANY, ANY PATIENT LIVES IN [place] Reviewer: [id number] - Constanza Gauthier Notice Issued Date-Time: 10/13/2018 12:12 Notice Type: Patient Choice Letter Notice Delivered To: Family Member Relationship to Patient: Spouse Department Assistant Name: HUSAM Delivery Method: - Claudine Days: Prior Verbal Notification: Recipient Understood Notice: Recipient Signature: Med Rec Note Co-signed by Attending: Coverage Notice Comment: Last DP export: 10/18/18 1:48 pm Patient Name: SAMIA HERNANDEZ Page [phone] at 1457 All edits/amendments must be made on the electronic document DICTATION DATE: 10/18/181456 CAREER MANAGER: JUDITH 10/18/18 1457 RPT#: [id number] DC DATE: STATUS: ADM IN [facility] [address] [place] [address] END OF REPORT
--- NOTE | 2018-10-18 15:30 | NUR ---
REASSESSMENT COMPLETE PER FLOW SHEET. VSS. PT ATTEMPTING TO GET OOB REORIENTED STATED UNDERSTANDING. NO NEW CHANGES WILL CONTINUE TO MONITOR
--- NOTE | 2018-10-18 17:00 | NUR ---
FAMILY AT BEDSIDE GIVEN UPDATE.
--- NOTE | 2018-10-18 19:00 | NUR ---
REPORT RECEIVED. RECEIVED PATIENT SITTING UP IN BED. AWAKE AND ALERT. ORIENTED TO PERSON AND PLACE WITH SOME CONFUSION TO DATE/TIME AND SITUATIONS. RE ORIENTS WELL WITH SHORT TERM MEMORY DECICIT OBSERVED. SPEECH CLEAR AND APPROPRIATE. FACE/SMILE SYMETRICAL. CART DRIVER = BILAT. EYES PERRL. DENIES PAIN AT PRESENT. CALL LIGHT WITHIN REACH, CLIENT REINSTRUCTED ON HOW TO USE CALL LIGHT AND VERBALIZED UNDERSTANDING. SR UP X 2. BED IN LOW POSITION.
--- NOTE | 2018-10-18 19:15 | NUR ---
CALL RECEIVED FROM GAETANO AT TRANSFER CENTER TO STATE PT IS ON WAITING LIST AT [facility] AND IS 3RD ON THE LIST WITH DR. YARBROUGH THE ACCEPTING PHYSICIAN. SHE WILL BE FAXING THE TRANSFER AGREEMENT FORM OVER TO BE COMPLETED.
--- NOTE | 2018-10-18 19:45 | NUR ---
CALL RECEIVED FROM KILLIAN WHO STATED SHE WAS WITH [facility] AND HAD BEEN ATTEMPTING TO REACH DR. DIAZ REPEATEDLY SINCE 3PM. SHE CONFIRMED THE CORRECT CELL PHONE NUMBER AND STATED ALTHOUGH PT HAD BEEN ON THE WAITING LIST THEY WERE CONFIRMING PT CONTINUED TO NEED TRANSFERRING. CONFIRMED THAT DR. DIAZ DID INDEED WISH FOR PT TO BE TRANSFERRED AND THE TRANSFER CENTER WAS HANDLING THIS. SHE ADVISED EVEN THOUGH PT HAS BEEN INITIALLY ACCEPTED BY THE HOSPITALIST DR. DIAZ WOULD NEED TO SPEAK DIRECTLY TO DR. DAVIS AND DISCUSS THE CASE. SHE ADVISED IT WOULD BE NECESSARY FOR DR. DIAZ TO CALL [facility] AND THEY WOULD CONNECT HIM TO DR. DAVIS. DID NOTIFY COMMERCIAL ANNOUNCER OF THIS ACTIVITY BEING REQUESTED AND ADVISED TO NOTIFY DR. DIAZ AND PROCEED.
--- NOTE | 2018-10-18 19:50 | NUR ---
DR. DIAZ PAGED PER ANSWERING SERVICE AND RETURN CALL RECEIVED FROM JULIANNE DELGADO APN AND SITUATION AND SHE NOTIFIED DR. DIAZ TO CALL. [address] DIAZ. SITUATION EXPLAINED AND CONFIRMED THAT EVEN THOUGH WE HAD RECEIVED ACCEPTANCE AND WERE PLACED ON THE WAITING LIST AND HE HAD SPOKEN WITH DR. YARBROUGH, [facility] IS NOW REQUESTING ADDITIONAL CONSULTATION. DAIANA BASHIR AND CONTACT NUMBER GIVEN.
--- NOTE | 2018-10-18 20:00 | NUR ---
DR. DIAZ CALLED ICU TO STATE HE HAD SPOKEN WITH DR. DAVIS WHO IS A NEURO SURGEON AND WAS UNAWARE OF THE PATIENT BEING TRANSFERRED. DR. DIAZ STATED PT DOES NOT NEED NEUROSURGEON. THIS NURSE WILL CONTACT TRANSFER CENTER DIRECTLY TO DISCUSS RECENT EVENTS.
--- NOTE | 2018-10-18 20:15 | NUR ---
SPOKE WITH GAETANO AT TRANSFER CENTER TO DISCUSS WHERE WE WERE AT IN THE PROCESS OF TRANSFERRING AND CONFIRM STATUS WITH [facility]. NOTIFIED WE WERE STILL ON THE WAITING LIST AND 3RD ON THE LIST FOR TRANSFER AND SHE WOULD LOOK INTO THE CALL RECEIVED DIRECTLY FROM THEM
--- NOTE | 2018-10-18 20:15 | NUR ---
CALL RECEIVED FROM KILLIAN WHO AT THIS TIME CALLER ID IDENTIFIED FROM [facility]. QUESTIONED THIS CALLER WHO CONFIRMED SHE WAS FROM [facility]. SHE STATED SHE STILL HAD NO RECORD OF DR. DIAZ CALLING TO SPEAK WITH DR. DAVIS. ADVISED DR. DIAZ WAS NOT SEEKING A NEUROSURGEON FOR THIS PATIENT RATHER HE NEEDED NEUROLOGY AND HE WAS ON THE WAITING LIST FOR [facility].
--- NOTE | 2018-10-18 21:00 | NUR ---
STIVEN FROM TRANSFER CENTER CALLED TO STATE SHE HAD SPOKEN WITH [facility] AND THEY HAD NO RECORD OF CALLING THIS HOSPITAL AND PT CONFIRMED TO BE ON WAITING LIST. THE TRANSFER AGREEMENT FAXED TO TRANSFER CENTER REQUESTED. PT'S HAS SIGNED THE TRANSFER FORMS DUE TO INTERMITTENT CONFUSION EVIDENCED IN PT IN RECENT ASSESSMENTS. DR. DIAZ DISCUSSED CASE WITH DR. SALES AND DR. SALES SIGNED THE PHYSICIAN CERTIFICATION TRANSFER FORM. AWARE OF PENDING TRANSFER.
--- NOTE | 2018-10-18 21:00 | NUR ---
AWAKE AND ALERT. DISORIENTED TO DATE/TIME AND SITUATION, REORIENTATION GIVEN AND RECEIVED WELL. SPEECH CLEAR. NO CHANGES OBSERVED. CALL LIGHT IN REACH. SR UP X 2 BED IN LOW POS.
--- NOTE | 2018-10-18 23:00 | NUR ---
REASSESSMENT COMPLETED PER FLOWSHEET WITH NO CHANGES OBSERVED.CALL LIGHT IN REACH. BED IN LOW POS. BED ALARM ON AND FUNCTIONING. DENIES PAIN
--- NOTE | 2018-10-18 23:00 | NUR ---
IV STARTED IN RIGHT AC WITH 18 G CATH, GOOD BLOOD RETURN NOTED AND FLUSHED EASILY. SECURED WITH OPSITE AND TAPE. PATIENT TOLERATED WELL.
[2018-10-19] VITALS (7 sets, daily range): BP systolic 102–143; BP diastolic 66–91
--- NOTE | 2018-10-19 01:00 | NUR ---
RESTING WITH EYES CLOSED. EASILY ROUSED TO VERBAL STIMULI AND ALERT. NO DISTRESS OBSERVED. SR UP X 2. CALL LIGHT IN REACH. BED IN LOW POS
--- NOTE | 2018-10-19 03:00 | NUR ---
AWAKE AND ALERT. ORIENTED TO PERSON AND PLACE WITH SOME CONFUSION TO DATE/TIME AND SITUATION. SPEECH CLEAR AND APPROPRIATE. REASSESSMENT COMPLETED PER FLOW SHEET WITH NO CHANGES OBSERVED. BED IN LOW POS. SR UP X 2 BED ALARM ON AND FUNCTIONING.
[2018-10-19 04:32] LABS: BASOPHILS 0.3 % (0-2); EOSINOPHILS 1.8 % (0-7); HEMATOCRIT 35.2 % (42.0-54.0); HEMOGLOBIN 11.8 g/dL (13.5-17.5); IMMATURE GRANULOCYTES 0.5 % (0-5); LYMPHOCYTES 17.6 % (15-50); MCHC 33.5 g/dL (31.0-37.0); MCV 92.4 fL (80.0-100.0); MEAN PLATELET VOLUME 10.2 fL (7.4-10.4); MONOCYTES 7.8 % (2-11); PLATELET COUNT 447 10x3/uL (130-400); RBC 3.81 10x6/uL (4.20-6.10); RDW 12.9 % (11.5-14.5); WBC 13.1 10x3/uL (4.8-10.8)
[2018-10-19 04:46] LABS: ANION GAP 14.4 mmol/L (8-16); CALCIUM 9.1 mg/dL (8.5-10.1); CARBON DIOXIDE 28.6 mmol/L (21.0-32.0); CREATININE - SERUM 1.2 mg/dL (0.6-1.3)
--- NOTE | 2018-10-19 05:07 | NUR ---
RESTING WITH EYES CLOSED, EASILY ROUSED AND ALERT. NO DISTRESS OBSERVED. SR UP X 2 BED ALARM ON
--- NOTE | 2018-10-19 07:20 | NUR ---
REPORT RECEIVED. ASSESSMENT COMPLETE PER FLOW SHEET. REFER FOR FINDINGS. WILL CONTINUE TO MONITOR
--- NOTE | 2018-10-19 08:15 | NUR ---
RECEIVED CALLED PT ACCEPTED TO [facility] BED #19 RECIEVED.
--- NOTE | 2018-10-19 08:30 | NUR ---
REPORT CALLED TO KAYLA AT [facility], TRANSFER CENTER CALLED MADE AWARE.
--- NOTE | 2018-10-19 08:40 | NUR ---
KAYLA CALLED GIVEN [facility] WILL ARRIVE IN 15 MINUTES. ETA 1000
--- NOTE | 2018-10-19 10:25 | NUR ---
EMS AT BEDSIDE PT LEFT WITHOUT DIFFICULTY.
== END 2018-10-19 10:25 | disposition short-term general hospital (02) | DRG 871 ==
LOC: D.ER 12:37 → D.M3 15:24 → D.EDHOLD 15:24 → D.M3 16:22 → D.ICU 10-16 22:57
PROVIDERS: Family Medicine; Orthopaedic Surgery; Student in an Organized Health Care Education/Training Program; ADMIT Internal Medicine Nephrology; ATTEND Internal Medicine Nephrology
PROC: 0S9C3ZZ Drainage of Right Knee Joint, Percutaneous Approach (ICD-10-PCS; principal; 2018-10-03)
DX: A41.9 Sepsis, unspecified organism (principal); J69.0 Pneumonitis due to inhalation of food and vomit; R40.2344 Coma scale, best motor response, flexion withdrawal, 24 hours or more after hospital admission; L03.116 Cellulitis of left lower limb; E87.1 Hypo-osmolality and hyponatremia; F17.213 Nicotine dependence, cigarettes, with withdrawal; M00.861 Arthritis due to other bacteria, right knee; E87.4 Mixed disorder of acid-base balance; E87.6 Hypokalemia; G62.9 Polyneuropathy, unspecified; E03.9 Hypothyroidism, unspecified; E78.5 Hyperlipidemia, unspecified; F10.10 Alcohol abuse, uncomplicated; M17.11 Unilateral primary osteoarthritis, right knee; K76.0 Fatty (change of) liver, not elsewhere classified; D50.9 Iron deficiency anemia, unspecified; R40.2134 Coma scale, eyes open, to sound, 24 hours or more after hospital admission; R40.2234 Coma scale, best verbal response, inappropriate words, 24 hours or more after hospital admission